=== PATIENT | female | born 1940 | race Caucasian/White ===

== ENCOUNTER 2021-09-17 22:05 | Observation (INO) | payer MEDICARE, SELFPAY ==
--- NOTE | ~2021-09-17 | XR_ITS ---
EXAMINATION: XR chest 2V Exam Date/Time: 09/17/2021 22:35 CDT HISTORY: midsternal chest pain radiates down lt arm pain today Comparison: 05/03/2010. RESULT: Lines, tubes, and devices: Cholecystectomy clips. Lungs and pleura: Clear. Cardiomediastinal silhouette: Stable cardiomediastinal silhouette. Other: No acute osseous or upper abdominal finding. IMPRESSION: No acute cardiopulmonary process. Reviewed, dictated and finalized at location K.
--- NOTE | ~2021-09-17 | CT_ITS ---
EXAMINATION: CTA chest PE protocol DATE: 09/18/2021 07:50 CDT INDICATION: Pleuritic chest pain TECHNIQUE: Computed tomographic angiography (CTA) of the chest was performed with 100 mL Omnipaque-35 0 intravenous contrast. The dose-length product was 169.53 mGy-cm. Maximum intensity projection 3D-re constructions of the aorta and other arteries were constructed by the technologist on a separate work station. Automated exposure control and iterative reconstruction technique were employed. COMPARISON: None. FINDINGS: Heart size normal. No significant pleural or pericardial effusion. Study is technically amanda quate without evidence for pulmonary embolism. No thoracic lymphadenopathy. No significant pleural or pericardial effusion. Heart size normal. There are cholecystectomy clips in the upper abdomen. There is apical pleural thickening/scarring. No endobronchial lesions. No pneumothorax. No focal airspace consolidation. No acute osseous abnormality. There is mild superior endplate compression deformity of a midthoracic vertebra which appears chronic. IMPRESSION: 1. No evidence for pulmonary embolism. No acute cardiopulmonary disease. Reviewed, dictated and finalized at location A.
--- NOTE | 2021-09-17 22:10 | ECG_ITS ---
Measurements Intervals [place] Rate: 75 P: 64 [place]: 176 QRS: 19 QRSD: 82 T: 69 QT: 350 QTc: 393 Interpretive Statements SINUS RHYTHM POOR R-WAVE PROGRESSION NO PREVIOUS ECG AVAILABLE FOR COMPARISON Electronically Signed On 09-18-2021 12:40:59 CDT by Rakel Hutchinson M.D.
[2021-09-17 22:28] VITALS: BP 100/60; PULSE 77; RESP 18; TEMP 36.3; O2SAT 99
[2021-09-17 22:39] LABS: Basophils Absolute Auto 0.1 K/mm3 (0.0-0.1); Basophils Percent Auto 0.7 % (0.2-1.2); Eosinophils Absolute Auto 0.1 K/mm3 (0-0.3); Eosinophils Percent Auto 1.1 % (0-4.4); Immature Granulocyte Absolute 0.02 K/mm3 (0.00-0.031); Immature Granulocyte Percent A 0.2 % (0-0.5); Lymphocytes Absolute Auto 1.91 K/mm3 (0.9-3.2); Lymphocytes Percent Auto 20.3 % (18.3-44.2); Mean Corpuscular HGB Conc 32.5 g/dl (32-36); Mean Corpuscular Hemoglobin 30.5 pg (26-34); Mean Corpuscular Volume 93.9 fl (80-100); Mean Platelet Volume 9.3 fl (7.4-10.4); Monocytes Absolute Auto 0.8 K/mm3 (0.1-0.6); Monocytes Percent Auto 8.1 % (2.6-8.5); Neutrophils Absolute Auto 6.6 K/mm3 (1.3-6.7); Neutrophils Percent Auto 69.6 % (45.5-73.1); Platelet Count Result 286 k/mm3 (150-375); Red Blood Count 4.26 M/mm3 (4.2-5.4); Red Cell Distribution Width 12.7 % (11.5-14.5); White Blood Count 9.4 K/mm3 (4.5-10.0)
[2021-09-17 22:50] LABS: Alanine Aminotransferase 8 U/L (6-35); Albumin Level 4.4 g/dL (3.5-5.1); Alkaline Phosphatase 79 U/L (38-126); Anion Gap 6 mmol/L (8-16); Aspartate Amino Transferase 21 U/L (14-36); Bilirubin,Total 0.6 mg/dL (0.2-1.3); Blood Urea Nitrogen 11 mg/dL (7-17); Calcium 9.2 mg/dL (8.4-10.2); Carbon Dioxide 28 mmol/L (22-30); Chloride 100 mmol/L (98-107); Estimated Glomerular Filt Rate > 60; Glucose 121 mg/dL (65-110); Lipase 206 U/L (23-300); Potassium 3.7 mmol/L (3.4-5.0); Sodium 134 mmol/L (137-145)
[2021-09-17 22:52] LABS: Partial Thromboplastin Time 25.8 SECONDS (22.3-36.8); Prothrombin Time 13.1 Seconds (11.1-14.7)
[2021-09-17 23:04] LABS: Troponin I 0.028 ng/mL (0.000-0.034)
[2021-09-17 23:56] VITALS: PULSE 73
[2021-09-18] VITALS (31 sets, daily range): BP systolic 105–140; BP diastolic 30–78; PULSE 63–87; RESP 12–20; TEMP 36.2–38.2; O2SAT 92–99
--- NOTE | 2021-09-18 | ED.GENADULT ---
HPI - General Adult General Chief complaint: Chest Pain Stated complaint: chest pain Time Seen by Provider: 09/17/21 23:39 History of Present Illness HPI narrative: 81-year-old female with history of diabetes and hypertension presenting to the emergency department for evaluation of back pain and chest pain. Patient states this morning she was having back pain and lower rib pain. Patient states she took ibuprofen, had a nap and when she woke up the pain had resolved. Patient states this evening that the pain did return. Patient denies any associated shortness of breath. Patient denies any prior history of AL. Patient states she does have history of tachycardia and spells of V. tach. Patient does take lisinopril for this. Patient denies any prior history of PE or DVT. Related Data Home Medications Medication Instructions Recorded Confirmed B Complex-Vitamin B12 1 tablet PO DAILY 09/18/21 09/18/21 lisinopril 10 mg tablet 1 tablet PO DAILY 09/18/21 09/18/21 metformin 500 mg tablet 1 tablet PO BID 09/18/21 09/18/21 Allergies Allergy/AdvReac Type Severity Reaction Status Date / Time Penicillins Allergy Severe HIVES AND Verified 04/23/17 07:35 DIFFICUTLY BREATHING Review of Systems Review of Systems: CONSTITUTIONAL: Denies fever, chills, or sweats. EYES: Denies visual changes, redness, or discharge. ENT: Denies rhinorrhea, congestion, sore throat, or otalgia. CARDIOVASCULAR: See HPI RESPIRATORY: Denies cough or dyspnea. GASTROINTESTINAL: Denies abdominal pain, nausea, vomiting, or diarrhea. GENITOURINARY: Denies dysuria or hematuria. SKIN: Denies rash or itching. MUSCULOSKELETAL: See HPI NEUROLOGIC: Denies headache, numbness, or weakness. [facility] [place] Family History Family History (Updated 09/18/21 @ 05:26 by Orquidea Winchester RN) Mother Cerebral aneurysm Father Alzheimer's dementia Heart disease Sibling Bladder cancer Social History Social History Smoking packs per day: 1 Smoking cigarettes per day: 20.0 Years smoked: 40 Smoking pack-years: 40.00 Smoking status: Current every day smoker Tobacco type: cigarettes Alcohol intake: current Drinks per week: 1 Substance use: never Spiritual care concerns: No Exam Narrative: APPEARANCE: Well appearing, no pain, no distress, well-nourished. HEAD: normocephalic, atraumatic. EYES: PERRLA/EOMI, conjunctivae clear. NOSE: Normal no drainage THROAT: Pharynx clear, no exudate. NECK: Supple. No adenopathy, no masses. RESPIRATORY: Airway patent, respirations nonlabored. Clear to auscultation bilaterally, no rales, rhonchi, wheezing. CARDIOVASCULAR: Regular rate and rhythm without murmurs rubs or gallops. ABDOMINAL: Soft, nontender, nondistended, normal bowel sounds MUSCULOSKELETAL: Moves all extremities. Strength/ROM intact, No edema, No calf tenderness. NEURO: Alert. Cranial nerves II through XII intact. Grossly intact SKIN: Warm, dry. Normal Color Course Course Emergency Course: Patient is afebrile with no leukocytosis. Patient's CMP is generally within normal limits. Patient's initial troponin was 0.028. Patient repeat troponin was 0.045. Patient was discussed with the hospitalist and due to the patient's age, no EKG changes and minimal bump in her troponin was decided to not start Lovenox and to wait the third troponin. Patient was admitted to the IMU. Patient was updated on the results of her work-up and plan for admission. CTA showed no evidence of a pulmonary embolism. Vital Signs Vital signs: Vital Signs Temperature 97.3 F L 09/17/21 22:28 Pulse Rate 77 09/17/21 22:28 Respiratory Rate 18 09/17/21 22:28 Blood Pressure 100/60 09/17/21 22:28 Pulse Oximetry 99 09/17/21 22:28 Oxygen Delivery Room Air 09/17/21 22:28 Temperature 97.9 F 09/18/21 05:14 Pulse Rate 87 09/18/21 05:14 Respiratory Rate 20 09/18/21 05:14 Blood Pressure 126/78 09/18/21 05:14 Pulse Oximetry 99 09/18/21 05:14 Oxyg
[2021-09-18] MEDS: ASPIRIN 81 MG CHEWABLE TABLET 324 MG PO (00:01)
[2021-09-18] MEDS: MORPHINE SULFATE (*CRX) 4 MG/ML INJ IV PUSH (00:52)
[2021-09-18 02:11] LABS: Troponin I 0.045 ng/mL (0.000-0.034)
[2021-09-18 03:45] LABS: Appearance Urine Clear (Clear); Bilirubin Urine Negative (Negative); Blood Urine Trace-lysed (Negative); Glucose Urine UA Negative (Negative); Ketones Urine Negative (Negative); Leukocyte Esterase Ur Negative LEU/UL (Negative); Nitrate Urine Negative (Negative); Protein Urine Negative (Negative); Specific Grav Ur <= 1.005 (1.001-1.035); Urobilinogen Urine 0.2 mg/dL (<2.0); pH Urine 5.5 (5.0-9.0)
[2021-09-18 03:47] LABS: Bacteria Urine Trace /hpf; RBC Urine 0-2 /hpf (0-2)
[2021-09-18 03:48] LABS: Add Urine Microscopic? YES; Color Urine Light Yellow (Yellow)
[2021-09-18 04:21] LABS: SARS-CoV-2 RNA PCR Negative
[2021-09-18 05:01] LABS: Troponin I 0.259 ng/mL (0.000-0.034)
--- NOTE | 2021-09-18 05:15 | ADMGEN ---
This patient, Luana Martinez, was admitted to IMU Room 205-01. Patient/family oriented to hospital policies and general routines including ID bracelet, bed and alarms, visiting hours, pain management, procedures, bathroom and other care routines, personal items, smoking policy, room service/diet, and visiting hours. Information on how to activate the Rapid Response Team has been discussed. Patient/Family are encouraged to report perceived risks to care and to ask questions if they do not understand what they are told or what they should do.
--- NOTE | 2021-09-18 07:43 | ECG_ITS ---
Measurements Intervals [place] Rate: 67 P: 67 [place]: 182 QRS: 12 QRSD: 89 T: 91 QT: 372 QTc: 394 Interpretive Statements SINUS RHYTHM NONSPECIFIC ST & T-WAVE ABNORMALITY COMPARED TO ECG 09/17/2021 22:14:55 NO SIGNIFICANT CHANGE Electronically Signed On 09-18-2021 12:44:55 CDT by Rakel Hutchinson M.D.
--- NOTE | 2021-09-18 08:26 | PM.CNCAR ---
Assessment and Plan Assessment and plan (1) Elevated troponin: Code(s): R77.8 - Other specified abnormalities of plasma proteins Status: Acute (2) Chest pain: Code(s): R07.9 - Chest pain, unspecified Status: Acute Plan This is an 81-year-old woman with multiple risk factors including hypertension on at some and diabetes dyslipidemia and cigarette smoking who presents to the hospital with waxing and waning ischemic type chest pain that occurred at rest yesterday. Her electrocardiogram looks benign her troponin levels have shown a modest rise in this setting I would recommend an angiogram. She understands this well and is agreeable. We will get this done later this morning and further recommendations of course will be forthcoming with those findings. Ronny Smith MD [facility] History of Present Illness History of Present Illness Consult date/time: 09/18/21 08:26 Consult reason: chest pain Reason For Visit: elevated trop Narrative: This is a pleasant 81-year-old woman who presented to the hospital yesterday evening with a couple of episodes of chest pain that occurred earlier in the day. She was seen in the emergency room evaluated and admitted admitted for further observation and management. She is not known to have coronary artery disease prior to this she did state that she has a history of some atrial and ventricular ectopic activity for which she has seen physicians in the past which was attributed to hypertension. She has longstanding hypertension for which she takes lisinopril. She has never had palpitations that have resulted in syncope. She is normally active elderly lady who carries on daily activities and has not noticed any pattern of exertional chest discomfort. Yesterday morning she had an episode of some pressure-like discomfort in the central to upper substernal region that radiated into her neck and jaw. The discomfort lasted altogether for 10 or 20 minutes and then subsided. She took some ibuprofen when this happened and the felt well the rest of the day yesterday evening she had the recurrence of similar symptoms. Both of these episodes did not occur with exertion she was basically at rest at home. She then came into the emergency room her electrocardiogram looks benign. She has had a small rise in her troponin from normal to 0.2. In this setting I am seeing her in consultation. She states that longstanding hypertension has been well controlled with lisinopril. She does have dyslipidemia which is treated with diet. She has been tried on several statin drugs with severe muscle pain and is felt to be intolerant of statins. She has non insulin-dependent diabetes which is very well controlled with diet. She is a longstanding cigarette smoker. Review of Systems Constitutional: Constitutional: Reports no additional constitutional complaints Eyes: Eyes: Reports no additional eye complaints ENT: Reports system reviewed and no additional complaints, except as documented Cardiovascular: Cardiovascular: Reports as per HPI Respiratory: Respiratory: Reports no additional respiratory complaints Gastrointestinal: Gastrointestinal: Reports no additional gastrointestinal complaints Musculoskeletal: Musculoskeletal: Reports no additional musculoskeletal complaints Integumentary/Breasts: Skin/Breast: Reports system reviewed and no additional complaints, except as docu Neurologic: Reports system reviewed and no additional complaints, except as documented Endocrine: Endocrine: Reports no additional endocrine complaints Hematologic/Lymphatic: Hematologic/Lymphatic: Reports no additional hematologic/lymphatic complaints Allergic/Immunologic: Allergic/Immunologic: Reports no additional allergic/immunologic complaints [facility] Family History Family History (Updated 09/18/21 @ 05:26 by Orquidea Winchester RN) Mother Cerebral aneurysm Father Alzheimer's dementia Heart disease Sibling Bladder
--- NOTE | 2021-09-18 09:20 | PM.IMHP ---
H&P: HPI History of Present Illness Date/Time: 09/18/21 09:20 Chief Complaint: Chest pain Narrative: This is 81 old female with past medical history of well-controlled diabetes, hypertension, hyperlipidemia intolerant to statin presented with chest pain that started yesterday morning radiate to the back and the neck area. Was severe in characteristic happen at rest. Took some ibuprofen and helped. Later yesterday evening she had the pain again but this time of of in the not. She denies any nausea vomiting or shortness of breath associated with this. No history of coronary artery disease in the past. She had history of PVCs and PACs in the past. She had seen Dr. groves in the past. Chest x-ray was negative. CTA was done which showed no evidence of PE and no acute cardiopulmonary disease. Her initial troponin was negative however had uptrend on her troponin. She was admitted for further evaluation and management. Review of Systems Review of Systems: - CONSTITUTIONAL: Denies weight loss, fever and chills. - HEENT: Denies changes in vision and hearing - RESPIRATORY: Denies SOB and cough. - CV: Denies palpitations and reports CP. - GI: Denies abdominal pain, nausea, vomiting and diarrhea. - : Denies dysuria and urinary frequency. - MSK: Denies myalgia and joint pain. - SKIN: Denies rash and pruritus. - NEUROLOGICAL: Denies headache and syncope. - PSYCHIATRIC: Denies recent changes in mood. Denies anxiety and depression. All systems reviewed & are unremarkable except as noted in HPI and below Constitutional: Constitutional: Reports fatigue and Reports weakness Neurologic: Reports weakness Endocrine: Endocrine: Reports fatigue [facility] Family History Family History (Updated 09/18/21 @ 05:26 by Orquidea Winchester RN) Mother Cerebral aneurysm Father Alzheimer's dementia Heart disease Sibling Bladder cancer Social History Social History Smoking packs per day: 1 Smoking cigarettes per day: 20.0 Years smoked: 40 Smoking pack-years: 40.00 Smoking status: Current every day smoker Tobacco type: cigarettes Alcohol intake: current Drinks per week: 1 Substance use: never Spiritual care concerns: No Meds Home Medications and Allergies Home Medications Medication Instructions Recorded Confirmed Type B Complex-Vitamin B12 1 tablet PO DAILY 09/18/21 09/18/21 History lisinopril 10 mg tablet 1 tablet PO DAILY 09/18/21 09/18/21 History metformin 500 mg tablet 1 tablet PO BID 09/18/21 09/18/21 History Allergies Allergy/AdvReac Type Severity Reaction Status Date / Time Penicillins Allergy Severe HIVES AND Verified 04/23/17 07:35 DIFFICUTLY BREATHING Vital Signs Vital Signs - 24 hr 09/17/21 22:28 09/17/21 23:55 09/17/21 23:56 Temperature 97.3 F L Pulse Rate 77 73 Respiratory Rate 18 Blood Pressure 100/60 Pulse Oximetry 99 Oxygen Delivery Room Air Room Air 09/18/21 05:14 09/18/21 05:00 09/18/21 06:04 Temperature 97.9 F 98.0 F Pulse Rate 87 80 Respiratory Rate 20 20 Blood Pressure 126/78 117/41 L Pulse Oximetry 99 97 Oxygen Delivery Room Air 09/18/21 06:00 09/18/21 07:54 Temperature 98.5 F Pulse Rate 74 76 Respiratory Rate 16 Blood Pressure 123/53 L Pulse Oximetry 98 Oxygen Delivery Exam Narrative: APPEARANCE: Well appearing, no pain, no distress, well-nourished. HEAD: normocephalic, atraumatic. EYES: PERRLA/EOMI, conjunctivae clear. NOSE: Normal no drainage NECK: Supple. No adenopathy, no masses. RESPIRATORY: Airway patent, respirations nonlabored. Clear to auscultation bilaterally, no rales, rhonchi, wheezing. CARDIOVASCULAR: Regular rate and rhythm without murmurs rubs or gallops. ABDOMINAL: Soft, nontender, nondistended, normal bowel sounds MUSCULOSKELETAL: Moves all extremities. Strength/ROM intact, No edema, No calf tenderness. NEURO: Alert. Cranial nerves II through XII intact.? Grossly intact SKIN:
[2021-09-18 10:02] LABS: Cholesterol 220 mg/dL (0-200); HDL Direct 64 mg/dL; Triglycerides 101 mg/dL (<150)
[2021-09-18 10:13] LABS: LDL Cholesterol Direct 119 mg/dL
[2021-09-18] MEDS: SODIUM CHLORIDE 0.9% IV 500 ML 100 ML IV CONT (10:28)
[2021-09-18] MEDS: HYDROmorphone HCL INJ (*CRX) 1 MG/ML SYR 0.5 MG IV PUSH (10:35)
[2021-09-18 10:46] LABS: Hemoglobin A1C 5.7 % (<5.7)
--- NOTE | 2021-09-18 11:26 | WPDMODSED ---
Moderate Sedation Note-Pt Data Patient Data Diagnosis: acute coronary syndrome Present Complaint: chest pain radiating to the neck Procedure to be performed/Plan: left heart catheterization Allergies Allergy/AdvReac Type Severity Reaction Status Date / Time Penicillins Allergy Severe HIVES AND Verified 04/23/17 07:35 DIFFICUTLY BREATHING Home Medications Medication Instructions Recorded Confirmed Type B Complex-Vitamin B12 1 tablet PO DAILY 09/18/21 09/18/21 History lisinopril 10 mg tablet 1 tablet PO DAILY 09/18/21 09/18/21 History metformin 500 mg tablet 1 tablet PO BID 09/18/21 09/18/21 History Current Medications: Active Medications Aspirin (Aspirin 81 Mg Enteric Tablet) 81 mg PO QAM SONYA Dextrose (Dextrose 50% 25 Gm/50 Ml Syringe) 12.5 gm IV PUSH PRN PRN; Protocol PRN Reason: Hypoglycemia Glucagon (Glucagon For Inj 1 Mg Vial) 1 mg IM PRN PRN; Protocol PRN Reason: Hypoglycemia Glucose (Glucose Oral Gel 15 Gm Of Glucse In 37.5 Gm Tube) 15 gm PO PRN PRN; Protocol PRN Reason: Hypoglycemia Hydromorphone HCl (Hydromorphone Hcl Inj (*Crx) 1 Mg/Ml Syr) 0.5 mg IV PUSH Q4H PRN PRN Reason: Pain Rated 7-10 Last Admin: 09/18/21 10:35 Dose: 0.5 mg Sodium Chloride (Normal Saline Iv) 500 mls @ 100 mls/hr IV CONT .Q5H SONYA Last Admin: 09/18/21 10:28 Dose: 100 mls/hr Dextrose (Dextrose 5% 1,000 Ml) 1,000 mls @ 100 mls/hr IVPB PRN PRN; Protocol PRN Reason: Hypoglycemia Insulin Aspart (Insulin Aspart (*Bkc) 100 Units/Ml) 2 - 5 units SUB-Q TIDWM SONYA; Protocol Lisinopril (Lisinopril 10 Mg Tablet) 10 mg PO DAILY SONYA Metoprolol Tartrate (Metoprolol Tartrate 12.5 Mg Tablet) 12.5 mg PO Q12HR SONYA Vitamin B Complex (Vitamin B Complex Capsule) 1 cap PO DAILY SONYA Stop: 10/19/21 08:59 Sedation/Anesthesia: No previous sedation/anesthesia problems (including family history). [facility] Family History Family History (Updated 09/18/21 @ 05:26 by Orquidea Winchester RN) Mother Cerebral aneurysm Father Alzheimer's dementia Heart disease Sibling Bladder cancer Social History Social History Smoking packs per day: 1 Smoking cigarettes per day: 20.0 Years smoked: 40 Smoking pack-years: 40.00 Smoking status: Current every day smoker Tobacco type: cigarettes Alcohol intake: current Drinks per week: 1 Substance use: never Spiritual care concerns: No Mod Sed Physical Exam Physical Exam Pre Procedural Exam: Normal: Appearance, Neck, Throat, Airway, Heart Size, Heart Rate, Heart Rhythm, Neuro Exam and Extremities and Variation: Lungs ( tubular breath sounds bilateral) Hours since solid foods: 12 Hours since liquid intake: 12 Mallampati Classification: class II Internal Medicine - PN: Obj Da Vital Signs Vital Signs: Vital Signs - 24 hr 09/17/21 22:28 09/17/21 23:55 09/17/21 23:56 Temperature 36.3 C L Pulse Rate 77 73 Respiratory Rate 18 Blood Pressure 100/60 Pulse Oximetry 99 Oxygen Delivery Room Air Room Air 09/18/21 05:14 09/18/21 05:00 09/18/21 06:04 Temperature 36.6 C 36.7 C Pulse Rate 87 80 Respiratory Rate 20 20 Blood Pressure 126/78 117/41 L Pulse Oximetry 99 97 Oxygen Delivery Room Air 09/18/21 06:00 09/18/21 07:54 09/18/21 08:00 Temperature 36.9 C Pulse Rate 74 76 Respiratory Rate 16 Blood Pressure 123/53 L Pulse Oximetry 98 Oxygen Delivery Room Air Intake/Output Intake/Output: Intake & Output 09/15/21 09/16/21 09/17/21 09/18/21 23:59 23:59 23:59 23:59 Output Total 200 Balance -200 Meds/Results Medications: Active Medications Generic Name Dose Route Start Last Admin Trade Name Freq PRN Reason Stop Dose Admin Aspirin 81 mg 09/19/21 09:00 Aspirin 81 Mg Enteric Tablet PO QAM [facility] Dextrose 12.5 gm 09/18/21 09:45 Dextrose 50% 25 Gm/50 Ml Syringe IV PUSH PRN PRN Hypoglycemia Protocol Glucagon 1 mg 09/18/21 09:45 Glucagon For Inj 1 Mg Vial IM PRN
[2021-09-18] MEDS: lisinopriL 10 MG TABLET PO (11:32)
--- NOTE | 2021-09-18 12:18 | WPDCARDPROC ---
Cardiac Cath Procedure Note Date of procedure:: 09/18/21 Performing physician:: Ronny Smith MD Indication:: Chest pain/ acute coronary syndrome Brief clinical history:: this is 81-year-old woman with multiple risk factors who entered the hospital with an episode of chest and neck pain associated with a very small rise in her troponin level. Electrocardiograms are unremarkable. In this setting an angiogram has been recommended Procedure Procedure performed:: coronary angiography left ventriculography Sedation/Medication given:: Versed 1 mg case start time 12:01 p.m. case end time 12:13 p.m. Access site:: right femoral artery Estimated blood loss:: 20 cc Procedure note:: patient was brought to the cardiac catheterization lab in the postabsorptive state where the right femoral triangle was prepared in the normal fashion. Anesthesia was provided with 1% lidocaine infiltrated locally. Using the modified Seldinger technique the femoral artery was punctured and a 5 [place] vascular sheath was placed. After this left heart catheterization was carried out. I used a 5 [place] angled pigtail catheter to measure left-sided inject the left Ventricle in the KHAN projections. Following this the pigtail catheter was removed. I used a standard FL4 catheter to engage and inject the left coronary artery and then a standard JR4 catheter to engage and inject the right coronary artery. Cineangiograms were then reviewed and the case was terminated. The patient was taken to the holding area where manual sheath removal will be performed. She tolerated procedure well there were no apparent complications left the catheterization lab with no evidence of groin hematoma. Findings:: hemodynamics: Central pressure is 136 over 56 left ventricle 136/0 end-diastolic 16 there is no systolic gradient on pullback across the aortic valve. Left ventricle: The left ventricle is normal in size all segments contract vigorously the global ejection fraction is 75% by visual estimation no wall motion abnormalities were identified the left main coronary artery is nicely patent the left anterior descending has some mild adventitial calcification proximally however the vessel is widely patent down to the apex. There is a medium-sized proximal diagonal branch that has about 30% stenosis. The circumflex is a moderate caliber rise to 1 significant OM branch. The circumflex is angiographically free of disease. There is a small ramus intermedius branch that appears to have a proximal 80-90% stenosis this is a very small less than 1 mm size vessel. The right coronary artery is a moderate to large caliber vessel dominant to the posterior circulation the right coronary artery is smooth and angiographically normal in appearance. Conclusion:: 1. Right coronary artery dominant circulation with no significant coronary disease identified. Only significant lesion is a high-grade stenosis in the origin of a very tiny ramus intermedius branch described above. 2. Vigorous left ventricular systolic function 3. medical therapy will be recommended for this modest coronary disease Ronny Smith MD [facility]
[2021-09-18] MEDS: SODIUM CHLORIDE 0.9% IV 1,000 ML 125 ML IV CONT (13:28)
[2021-09-19] VITALS (9 sets, daily range): BP systolic 110–121; BP diastolic 45–61; PULSE 65–76; RESP 18–20; TEMP 36.6–37.6; O2SAT 97–98
[2021-09-19 07:52] LABS: Glucose Point of Care 123 mg/dl (65-105)
[2021-09-19] MEDS: ASPIRIN 81 MG ENTERIC TABLET PO (08:48)
[2021-09-19] MEDS: VITAMIN B COMPLEX CAPSULE 1 CAP PO (08:48)
[2021-09-19] MEDS: lisinopriL 10 MG TABLET PO (08:48)
--- NOTE | 2021-09-19 10:06 | PM.IMPN ---
Progress Note: A&P Assessment and Plan (1) Chest pain: Code(s): R07.9 - Chest pain, unspecified Status: Acute (2) Elevated troponin: Code(s): R77.8 - Other specified abnormalities of plasma proteins Status: Acute (3) Non-ST elevation OK (NSTEMI): Code(s): I21.4 - Non-ST elevation (NSTEMI) myocardial infarction Status: Acute (4) Diabetes type 2, controlled: Code(s): E11.9 - Type 2 diabetes mellitus without complications Status: Acute (5) Hypertension: Code(s): I10 - Essential (primary) hypertension Status: Acute (6) Hyperlipidemia: Code(s): E78.5 - Hyperlipidemia, unspecified Status: Acute Plan # Chest pain radiating to back typical characteristic of angina. Chest x-ray negative. CTA negative for PE or acute cardiopulmonary disease. Likely etiology is on ST-elevation. # Non ST-elevation OK: Elevated troponin no prior history of coronary artery disease. Multiple other risk factors. Plan for cardiac catheterization by Cardiology. Initial troponin-0.028 with subsequent increase over time to 0.[address]-elevation OK. continue aspirin 81 mg daily. Intolerant to statin but will check lipid profile. Add beta-joselin Cardiac catheterization 09/18/2021 1.? ? Right coronary artery dominant circulation with no significant coronary disease identified.? Only significant lesion is a high-grade stenosis in the origin of a very tiny ramus intermedius branch described above. 2.? ? Vigorous left ventricular systolic function 3. ? medical therapy will be recommended for this modest coronary disease LDL is 119, A1c is 5.7 Intolerant to statin check lipid. Hypertension Hyperlipidemia Diabetes check A1c. Hold metformin SSI Current Nicotine dependence DVT prophylaxis Code status full code Subjective Date/time seen: 09/19/21 10:06 Review of Systems Review of Systems: All systems reviewed & are unremarkable except as noted in HPI and below Exam Narrative: APPEARANCE: Well appearing, no pain, no distress, well-nourished. HEAD: normocephalic, atraumatic. EYES: PERRLA/EOMI, conjunctivae clear. NOSE: Normal no drainage NECK: Supple. No adenopathy, no masses. RESPIRATORY: Airway patent, respirations nonlabored. Clear to auscultation bilaterally, no rales, rhonchi, wheezing. CARDIOVASCULAR: Regular rate and rhythm without murmurs rubs or gallops. ABDOMINAL: Soft, nontender, nondistended, normal bowel sounds MUSCULOSKELETAL: Moves all extremities. Strength/ROM intact, No edema, No calf tenderness. NEURO: Alert. Cranial nerves II through XII intact.? Grossly intact SKIN: Warm, dry. Normal Color Objective Data Vital Signs Vital Signs: Vital Signs - 24 hr 09/18/21 12:45 09/18/21 12:50 09/18/21 12:33 Temperature 98.9 F Pulse Rate 70 72 76 Respiratory Rate 16 14 20 Blood Pressure 124/54 L 140/68 134/55 L Pulse Oximetry 92 92 94 Oxygen Delivery Room Air Room Air Room Air 09/18/21 12:55 09/18/21 13:00 09/18/21 13:05 Temperature Pulse Rate 71 63 69 Respiratory Rate 17 13 13 Blood Pressure 126/59 L 129/52 L 130/56 L Pulse Oximetry 93 92 92 Oxygen Delivery Room Air Room Air Room Air 09/18/21 13:10 09/18/21 13:15 09/18/21 13:20 Temperature Pulse Rate 72 70 63 Respiratory Rate 12 14 17 Blood Pressure 126/57 L 112/52 L 124/51 L Pulse Oximetry 92 92 92 Oxygen Delivery Room Air Room Air Room Air 09/18/21 13:45 09/18/21 14:00 09/18/21 14:15 Temperature Pulse Rate 67 65 64 Respiratory Rate 20 12 12 Blood Pressure 124/59 L 113/46 L 105/55 L Pulse Oximetry 96 94 94 Oxygen Delivery Room Air Room Air Room Air 09/18/21 13:30 09/18/21 15:00 09/18/21 14:30 Temperature 97.9 F 100.7 F H Pulse Rate 66 84 71 Respiratory Rate 12 16 16 Blood Pressure 118/53 L 111/48 L 109/52 L Pulse Oximetry 92 95 98 Oxygen Delivery Room Air 09/18/21 12:00 09/18/21 15:30 09/18/21 16:30 Temperature 97.8 F Pulse Rate 82 81 Respir
--- NOTE | 2021-09-19 10:11 | PM.PNCARD ---
Progress Note: A&P Assessment and Plan (1) Elevated troponin: Code(s): R77.8 - Other specified abnormalities of plasma proteins Status: Acute (2) Chest pain: Code(s): R07.9 - Chest pain, unspecified Status: Acute Assessment and Plan: Ischemic chest pain. She was taken to the cardiac medical laboratory technicians and was found to have high-grade stenosis in the origin of a very tiny ramus intermedius branch. Medical therapy recommended. Start ASA. She has been intolerant to statins in the past with severe myalgias. Can consider PCSK9 inhibitor as an outpatient. Recommend smoking cessation, she is planning to quit Heart healthy/low cholesterol diet daily light aerobic exercise Subjective Date/time seen: 09/19/21 10:11 Cardiology follow up for CAD Doing well today. No recurrence of chest pain. No shortness of breath. Has some questions regaring her medications. Review of Systems Constitutional: Constitutional: Reports no additional constitutional complaints Eyes: Eyes: Reports no additional eye complaints ENT: Reports system reviewed and no additional complaints, except as documented Cardiovascular: Cardiovascular: Reports as per HPI Respiratory: Respiratory: Reports no additional respiratory complaints Gastrointestinal: Gastrointestinal: Reports no additional gastrointestinal complaints Musculoskeletal: Musculoskeletal: Reports no additional musculoskeletal complaints Integumentary/Breasts: Skin/Breast: Reports system reviewed and no additional complaints, except as docu Neurologic: Reports system reviewed and no additional complaints, except as documented Endocrine: Endocrine: Reports no additional endocrine complaints Hematologic/Lymphatic: Hematologic/Lymphatic: Reports no additional hematologic/lymphatic complaints Allergic/Immunologic: Allergic/Immunologic: Reports no additional allergic/immunologic complaints Exam Const: General: comfortable and no acute distress Other: Pleasant elderly lady lying comfortably in bed no distress. HENMT: Mouth: Yes moist mucous membranes Eyes: Sclera: sclerae normal Pupils: Equal, round and reactive pupils present Neck: Neck: supple and no JVD Resp: Effort & Inspection: normal respiratory effort Auscultation: clear to auscultation bilaterally Cardio: Rate: regular rate Rhythm: regular rhythm Heart sounds: no murmurs GI: Auscultation: normal bowel sounds Skin: General skin exam: normal color Other: R groin arterial access site free from bleeding, hematoma, bruit. Some mild ecchymosis. Neuro: Cranial nerves: Yes Equal, round and reactive pupils present Other: Normal cognition Extrem: General: normal to inspection Objective Data Vital Signs Vital Signs: Vital Signs - 24 hr 09/18/21 12:45 09/18/21 12:50 09/18/21 12:33 Temperature 37.2 C Pulse Rate 70 72 76 Respiratory Rate 16 14 20 Blood Pressure 124/54 L 140/68 134/55 L Pulse Oximetry 92 92 94 Oxygen Delivery Room Air Room Air Room Air 09/18/21 12:55 09/18/21 13:00 09/18/21 13:05 Temperature Pulse Rate 71 63 69 Respiratory Rate 17 13 13 Blood Pressure 126/59 L 129/52 L 130/56 L Pulse Oximetry 93 92 92 Oxygen Delivery Room Air Room Air Room Air 09/18/21 13:10 09/18/21 13:15 09/18/21 13:20 Temperature Pulse Rate 72 70 63 Respiratory Rate 12 14 17 Blood Pressure 126/57 L 112/52 L 124/51 L Pulse Oximetry 92 92 92 Oxygen Delivery Room Air Room Air Room Air 09/18/21 13:45 09/18/21 14:00 09/18/21 14:15 Temperature Pulse Rate 67 65 64 Respiratory Rate 20 12 12 Blood Pressure 124/59 L 113/46 L 105/55 L Pulse Oximetry 96 94 94 Oxygen Delivery Room Air Room Air Room Air 09/18/21 13:30 09/18/21 15:00 09/18/21 14:30 Temperature 36.6 C 38.2 C H Pulse Rate 66 84 71 Respiratory Rate 12 16 16 Blood Pressure 118/53 L 111/48 L 109/52 L Pulse Oximetry 92 95 98 Oxygen Delivery Room Air 09/18/21 12:00 09/18/21 15:30 09/18/21 16:30 [place]
[2021-09-19 12:01] LABS: Glucose Point of Care 126 mg/dl (65-105)
--- NOTE | 2021-09-19 13:16 | PM.DS ---
DS: Admitting Diagnosis Discharge Date 09/19/2021 Admitting Diagnosis chest pain DS: Discharge Diagnosis Discharge Diagnosis (1) Chest pain: Code(s): R07.9 - Chest pain, unspecified Status: Acute (2) Elevated troponin: Code(s): R77.8 - Other specified abnormalities of plasma proteins Status: Acute (3) Non-ST elevation VT (NSTEMI): Code(s): I21.4 - Non-ST elevation (NSTEMI) myocardial infarction Status: Acute (4) Diabetes type 2, controlled: Code(s): E11.9 - Type 2 diabetes mellitus without complications Status: Acute (5) Hypertension: Code(s): I10 - Essential (primary) hypertension Status: Acute (6) Hyperlipidemia: Code(s): E78.5 - Hyperlipidemia, unspecified Status: Acute DS: Summary Hospital Course Reason for hospitalization: HPI: This is 81 old female with past medical history of well-controlled diabetes, hypertension, hyperlipidemia intolerant to statin presented with chest pain that started yesterday morning radiate to the back and the neck area.? Was severe in characteristic happen at rest.? Took some ibuprofen and helped.? Later yesterday evening she had the pain again but this time of of in the not.? She denies any nausea vomiting or shortness of breath associated with this.? No history of coronary artery disease in the past.? She had history of PVCs and PACs in the past.? She had seen Dr. kelley in the past.? Chest x-ray was negative.? CTA was done which showed no evidence of PE and no acute cardiopulmonary disease.? Her initial troponin was negative however had uptrend on her troponin.? She was admitted for further evaluation and management. Hospital Course: Chest pain radiating to back typical characteristic of angina.? Chest x-ray negative.? CTA negative for PE or acute cardiopulmonary disease.? Likely etiology is on ST-elevation. Non ST-elevation VT:? Elevated troponin no prior history of coronary artery disease.? Multiple other risk factors.? Plan for cardiac catheterization by Cardiology.? Initial troponin-0.028 with subsequent increase over time to 0.[address]-elevation VT. continue aspirin 81 mg daily.? Intolerant to statin but will check lipid profile.? Add beta-joselin Status post cardiac catheterization on 09/18/2021: 1.? ? Right coronary artery dominant circulation with no significant coronary disease identified.? Only significant lesion is a high-grade stenosis in the origin of a very tiny ramus intermedius branch described above. 2.? ? Vigorous left ventricular systolic function 3. ? medical therapy will be recommended for this modest coronary disease Intolerant to statin Lipid profile with LDL of 119. She reports intolerance to multiple different statins in the past. With her newly diagnosed coronary artery disease, she will need to be evaluated for PCSK9 inhibitor therapy which will be done as an outpatient basis. Follow-up with Cardiology on outpatient basis. Add beta-joselin and aspirin at discharge Also advise smoking cessation during the visit Hypertension Hyperlipidemia Diabetes A1c control at 5.7.? Hold metformin SSI. Resume metformin Current Nicotine dependence DVT prophylaxis Code status full code Time Spent with Patient Time attestation: Total time spent providing and/or coordinating discharge services: DS: Data Data Completed and Pending Labs on day of discharge: Labs from last 24 hours 09/19/21 09/19/21 11:48 07:37 POC Capillary Glucose 126 H 123 H Procedures/Treatments: 1.? ? Right coronary artery dominant circulation with no significant coronary disease identified.? Only significant lesion is a high-grade stenosis in the origin of a very tiny ramus intermedius branch described above. 2.? ? Vigorous left ventricular systolic function 3. ? medical therapy will be recommended for this modest coronary disease Imaging Radiologist's impression: ITS Impressions Chest X-Ray 0
== END 2021-09-19 14:19 | disposition home or self-care (01) ==
LOC: ANHED 09-18 03:12 → ANHIMU 09-18 04:27
PROVIDERS: Specialist; Admitting Provider Internal Medicine; Emergency Provider Emergency Medicine; PCP Family Medicine Adolescent Medicine; Visit Provider Internal Medicine
PROC: 4A023N7 Measurement of Cardiac Sampling and Pressure, Left Heart, Percutaneous Approach (ICD-10-PCS; CPT 93452; principal; 2021-09-18 10:30)
DX: I21.4 Non-ST elevation (NSTEMI) myocardial infarction (principal); I25.10 Atherosclerotic heart disease of native coronary artery without angina pectoris; I10 Essential (primary) hypertension; E78.5 Hyperlipidemia, unspecified; E11.9 Type 2 diabetes mellitus without complications; F17.210 Nicotine dependence, cigarettes, uncomplicated; Z79.84 Long term (current) use of oral hypoglycemic drugs; Z79.82 Long term (current) use of aspirin; Z20.822 Contact with and (suspected) exposure to COVID-19
CPT/HCPCS: 36415; 71046; 71275; 80053; 80061; 81001; 82948; 83036; 83690; 84484; 85025; 85610; 85730; 87086; 93005; 93458; 96374; 99285; A9270; C1887; C1894; C9803; G0378; J1170; J1644; J2250; J2270; J3010; J7030; J7040; Q9967; U0003; U0005

== ENCOUNTER 2022-10-08 06:45 | Outpatient (CLI) | payer MEDICARE, SELFPAY ==
[2022-10-08 07:30] LABS: Alanine Aminotransferase 11 U/L (6-35); Albumin Level 4.4 g/dL (3.5-5.1); Alkaline Phosphatase 68 U/L (38-126); Anion Gap 6 mmol/L (8-16); Aspartate Amino Transferase 22 U/L (14-36); Bilirubin,Total 2.3 mg/dL (0.2-1.3); Blood Urea Nitrogen 6 mg/dL (7-17); Calcium 9.4 mg/dL (8.4-10.2); Carbon Dioxide 28 mmol/L (22-30); Chloride 102 mmol/L (98-107); Cholesterol 196 mg/dL (0-200); Estimated Glomerular Filt Rate > 60; Glucose 127 mg/dL (65-110); HDL Direct 65 mg/dL; Potassium 3.5 mmol/L (3.4-5.0); Sodium 136 mmol/L (137-145); Triglycerides 86 mg/dL (<150)
[2022-10-08 07:41] LABS: Hemoglobin A1C 5.3 % (<5.7)
[2022-10-08 07:43] LABS: LDL Cholesterol Direct 94 mg/dL
== END 2022-10-08 06:46 | disposition home or self-care (01) ==
PROVIDERS: PCP Family Medicine Adolescent Medicine; Visit Provider Family Medicine Adolescent Medicine
DX: E11.42 Type 2 diabetes mellitus with diabetic polyneuropathy (principal); E78.00 Pure hypercholesterolemia, unspecified; I10 Essential (primary) hypertension; I70.0 Atherosclerosis of aorta
CPT/HCPCS: 36415; 80053; 80061; 83036

== ENCOUNTER → 2022-10-22 08:03 | Outpatient (CLI) | payer MEDICARE, SELFPAY ==
--- NOTE | ~2022-10-22 | US_ITS ---
Abdominal Sonogram: Real-time sonographic imaging of the abdomen was performed. Clinical History: Elevated bilirubin Findings: The liver appears normal with no evidence of mass lesion or bile duct dilatation. Main por parul vein demonstrates normal direction of flow. The spleen is normal in size without evidence of foca l lesion. The gallbladder is absent, compatible prior cholecystectomy. The common bile duct measures 11 mm. The visualized pancreas, aorta, and IVC are unremarkable. The right kidney measures 9.8 cm in length and the left kidney measures 10.8 cm. There is no hydronephrosis or renal calculus. Impression: Dilated common bile duct, which may be related to prior cholecystectomy. Correlate clinically. Reviewed, dictated and finalized at location . Impression: Dilated common bile duct, which may be related to prior cholecystectomy. Correl ate clinically.
== END ==
PROVIDERS: PCP Family Medicine Adolescent Medicine; Visit Provider Family Medicine Adolescent Medicine
DX: R17 Unspecified jaundice (principal); Z90.49 Acquired absence of other specified parts of digestive tract
CPT/HCPCS: 76700

== ENCOUNTER 2023-10-19 06:44 | Outpatient (CLI) | payer MEDICARE, SELFPAY ==
[2023-10-19 07:55] LABS: Hemoglobin A1C 5.8 % (<5.7)
[2023-10-19 07:56] LABS: Alanine Aminotransferase 6 U/L (6-35); Albumin Level 4.4 g/dL (3.5-5.1); Alkaline Phosphatase 68 U/L (38-126); Anion Gap 8 mmol/L (4-12); Aspartate Amino Transferase 21 U/L (14-36); Bilirubin,Total 1.1 mg/dL (0.2-1.3); Blood Urea Nitrogen 9 mg/dL (7-17); Calcium 9.4 mg/dL (8.4-10.2); Carbon Dioxide 29 mmol/L (22-30); Chloride 100 mmol/L (98-107); Cholesterol 197 mg/dL (0-200); Estimated Glomerular Filt Rate > 60; Glucose 105 mg/dL (65-110); HDL Direct 58 mg/dL; Potassium 3.6 mmol/L (3.4-5.0); Sodium 137 mmol/L (137-145); Triglycerides 113 mg/dL (<150)
[2023-10-19 08:05] LABS: Hematocrit 41.4 % (37.0-47.0); Hemoglobin 13.4 g/dL (12.0-15.0); Mean Corpuscular HGB Conc 32.4 g/dl (32-36); Mean Corpuscular Hemoglobin 31.1 pg (26-34); Mean Corpuscular Volume 96.1 fl (80-100); Mean Platelet Volume 9.8 fl (7.4-10.4); Platelet Count Result 290 k/mm3 (150-375); Red Blood Count 4.31 M/mm3 (4.2-5.4); Red Cell Distribution Width 12.7 % (11.5-14.5); White Blood Count 6.5 K/mm3 (4.5-10.0)
[2023-10-19 08:07] LABS: LDL Cholesterol Direct 115 mg/dL
== END 2023-10-19 06:45 | disposition home or self-care (01) ==
LOC: ANHLAB 06:49
PROVIDERS: PCP Family Medicine Adolescent Medicine; Visit Provider Family Medicine Adolescent Medicine
DX: I25.10 Atherosclerotic heart disease of native coronary artery without angina pectoris (principal); E11.42 Type 2 diabetes mellitus with diabetic polyneuropathy; E78.00 Pure hypercholesterolemia, unspecified; I10 Essential (primary) hypertension; R17 Unspecified jaundice; I70.0 Atherosclerosis of aorta
CPT/HCPCS: 36415; 80053; 80061; 83036; 85027

== ENCOUNTER 2024-06-15 19:22 | Emergency (ER) | payer MEDICARE, SELFPAY ==
[2024-06-15] VITALS (7 sets, daily range): BP systolic 102–139; BP diastolic 50–80; PULSE 74–98; RESP 15–19; TEMP 36.3; O2SAT 96–100
--- NOTE | ~2024-06-15 | XR_ITS ---
XR chest 1V Ordering provider: Brie Adams MD History: 84 years Female with . palpitation, dizzy . Comparison: September 17, 2021 FINDINGS: MEDIASTINUM: The cardiac silhouette is not enlarged. LUNGS: No infiltrates, effusions or pneumothorax. Underlying fibrotic changes. OTHER: No free air under the diaphragm. IMPRESSION: No acute cardiopulmonary pathology. Reviewed, dictated and finalized at location A.
--- OUTSIDE RECORDS SUMMARY | 2024-06-15 19:24 | XMS_ITS | Clinical Summary ---
Author Organization [facility] Address [address], [facility] [address] [place] [address] Phone Care Team Providers Care Senior It Recruiter Name Role Phone Ajay Gaytan MD Primary Care Provider + Medications polyethylene glycol (MIRALAX) Powder Use entire 255g bottle with 64oz of clear liquid as directed for colonoscopy prep. 255 g 0 7 Active Social History Tobacco Use Types Packs/Day Years Used Date Smoking Tobacco: Never Assessed Comments Unknown Sex and Gender Information Value Date Recorded Sex Assigned at Not on file Legal Sex Female 11:57 PM CDT Gender Identity Not on file Sexual Orientation Not on file Plan of Treatment Health Maintenance Due Date Last Done Comments DEXA Bone Density 1940 Hepatitis C Virus (HCV) Screening 1940 TdaP Immunization 1940 Pneumococcal Immunization (5 0+ years) (1 of 1 - PCV) 1991 Zoster Immunization (1 of 2) 1991 Respiratory Syncytial Virus (RSV) Immunization (Adult) (1 - 1-dose 75+ series) 02/18/2016 Influenza Immunization (#1) 2023 SARS-COV-2 Immunization ( season) 2023 Hepatitis B Immunization Aged Out No longer eligible based on patient's age to complete this topic Meningococcal Immunization (ACWY) Aged Out No longer eligible based on patient's age to complete this topic Rotavirus Immunization Aged Out No lo nger eligible based on patient's age to complete this topic Insurance MEDICARE [facility] Care Teams Senior It Recruiter Relationship Specialty Start Date End Date Ajay Gaytan MD [address] [place] [address] PCP - General Family Medicine 07/11/16
--- OUTSIDE RECORDS SUMMARY | 2024-06-15 19:24 | XMS_ITS | Clinical Summary ---
Author Organization [facility] [address] Address [address] [place] [address] Care Team Providers Care Bilingual [employer] Teacher Name Role Phone Ajay Gaytan MD Primary Care Prov ider Allergies Active Allergy Reactions Criticality Noted Date Comments Penicillins Medications aspirin 81 mg enteric coated tablet Take 1 tablet (81 mg total) by mouth 09/19/2021 Active lisinopriL (PRINIVIL,ZESTRI L) 10 mg tablet Take 1 tablet (10 mg total) by mouth daily 03/17/2021 Active metFORMIN (GLUCOPHAGE) 500 mg tablet Take 1 tablet (500 mg total) by mouth 2 (two) times a day 03/17/2021 Active nitroglycerin (NITROSTAT) 0.[address] under the tongue as needed 09/19/2021 Active resveratroL 250 mg capsule Take by mouth Active vitamin B complex with folic acid tablet Take 1 tablet by mouth daily Active cyanocobalamin, vitamin B-12, 5,000 mcg tablet, IR & ER, biphasic Take by mouth Active metoprolol XL (TOPROL-XL) 25 mg extended release tabletIndication s:Coronary artery disease involving hoopa coronary artery of hoopa heart without angina pectoris Take 1 Tablet (25 mg) by mouth daily. 90 tablet 3 09/01/2023 Active alpha lipoic acid 100 mg capsule Take by mouth Active Active Problems Problem Noted Date Diagnosed Date Encounter for screening colonoscopy 03/10/2024 History of colonic polyps 03/10/2024 Family history of colon cancer 03/10/2024 Statin intolerance 10/11/2021 Coronary artery disease invo lving hoopa coronary artery of hoopa heart without angina pectoris 10/11/2021 Ventricular premature beats 08/06/2013 Overview (06/27/2016): PVCs Hypertension 08/06/2013 Overview (06/27/2016): HYPERTENSION NOS Tobacco dependence syndrome 08/06/2013 Overview (06/27/2016): TOBACCO USE DISORDER Palpitations 08/06/2013 Overview (06/27/2016): PALPITATIONS 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/27/2016): MIXED HYPERLIPIDEMIA Premature atrial contraction 08/06/2013 Overview (06/28/2016): ATRIAL PREMATURE BEATS Encounters Date Type Department Care Team Description 05/26/2024 Results Follow-Up [facility] Medical [facility] [address] [place] [phone] Rebekah Jarrell NP 05/20/2024 1:30 PM PHOTOGRAPHIC PRESS SCREWMAKER Ancillary Procedure [facility] [address] [place] [phone] Palpitations 05/20/2024 11:30 AM PHOTOGRAPHIC PRESS SCREWMAKER Office Visit [facility] Medical [facility] [address] [place] [phone] Rebekah Jarrell NP Palpitations (Primary Dx) from Last 3 Months Surgical History Surgery Date Site/Laterality Comments APPENDECTOMY CHOLECYSTECTOMY TUBAL LIGATION CATARACT EXTRACTION Medical History Medical History Date Comments Hypertension Hyperlipidemia Diabetes mellitus (HCC) Past heart attack Social History Tobacco Use Types Packs/Day Years Used Date Smoking Tobacco: Every Day Cigarettes Tobacco Cessation:Ready to Q uit: Not Asked; Counseling Given: Not Answered AUDIT-C Answer Date Recorded Q1: How often do you have a drink containing alc ohol? Monthly or less 10/11/2021 Q2: How many drinks containi ng alcohol do you have on a typical day when you are drinking? 1 or 2 10/11/2021 Q3: How often do you have si x or more drinks on one occasion? Never 10/11/2021 Comments Unknown Sex and Gender Information Value Date Recorded Sex Assigned at Not on file Legal Sex Female 1:43 AM PHOTOGRAPHIC PRESS SCREWMAKER Gender Identity Not on file Sexual Orientation Not on file Obstetrics History Last Filed Vital Signs Vital Sign Reading Time Taken Comments Blood Pressure 116/50 05/20/2024 11:22 AM PHOTOGRAPHIC PRESS SCREWMAKER Pulse 76 05/20/2024 11:22 AM PHOTOGRAPHIC PRESS SCREWMAKER Temperature - - Respiratory Rate - - Oxygen Saturation 98% 05/20/2024 11:22 AM PHOTOGRAPHIC PRESS SCREWMAKER Inhaled Oxygen Concentration - - Weight 53.1 kg (117 lb) 05/20/2024 11:22 AM PHOTOGRAPHIC PRESS SCREWMAKER Height 152.4 cm (5') 05/20/2024 11:22 AM PHOTOGRAPHIC PRESS SCREWMAKER Body Mass Index 22.85 05/20/2024 11:22 AM PHOTOGRAPHIC PRESS SCREWMAKER Plan of Treatment Upcoming Encounters Date Type Department Care Team (Late st Contact Info) Description 09/14/2024 9:30 AM CDT Hospital Encounter [address] [id number] Adebayo Valderrama DO [address] [facility] [facility] [address] [place] [address] [place] [phone] 09/14/2024 9:30 AM CDT - 09/14/2024 10:00 AM CDT Surgery [address] [address] Adebayo Valderrama DO [address] [facility] [address] [place] [address] [place] [id number] COLONOSCOPY Scheduled Procedures Name Priority Associated Diagnoses Date/Ti me COLONOSCOPY Encounter for screening colonoscopy History of colonic polyps Family history of colon cancer 09/14/2024 9:30 AM CDT Health Maintenance Due Date Last Done Comments Depression Screening 1940 Fall Risk Assessment 1940 Osteoporosis Screening-Bone Density Scan 1940 DTaP/Tdap/Td Vaccine (1 - Tdap) 02/18/1952 Hepatitis B Screening 1959 Pneumococcal vaccine 65+ (1 of 2 - PCV) 02/18/1960 Zoster Vaccine (1 of 2) 1991 Well Visit 65+ 2006 Covid-19 Vaccine (5 - 2023-2 5 season) 2023 08/16/2021, 03/22/2021, 05/04/2020, Additional history exists Influenza Vaccine (#1) 2023 Procedures Procedure Name Priority Date/Time Associated Diagnosis Comments HOLTER MONITOR 48 HR Routine 05/23/2024 10:24 AM PHOTOGRAPHIC PRESS SCREWMAKER Palpitations from Last 3 Months Results * 48 HR Holter Monitor (05/23/2024 10:24 AM PHOTOGRAPHIC PRESS SCREWMAKER) Anatomical Region Laterality Modality Electrocardiogra phy Narrative 05/25/2024 3:19 PM PHOTOGRAPHIC PRESS SCREWMAKER AMBULATORY [facility] REPORT Patient Name: Luana Martinez Date of : 1940 Requesting Physician: Dr. Zamudio Date of interpretation: 05/25/24 Type of monitor : 48 hour Holter monitor Date of the study/Enrollment period: 05/20/2024 Indication: Palpitations Quality of the study: Fair Interpretation: Predominant underlying rhythm is sinus rhythm, heart rate ranged between 53 beats per minute to 132 beats per minute, average heart rate 77 beats per minute. QRS duration within normal limits. One pause was noted at 3.7 seconds without associated symptoms. Occasional ventricular and supraventricular ectopy was noted with a burden of 1 less than 1% and 2% respectively for the duration of the study. No symptoms or patient triggered events. Conclusions: Predominant underlying rhythm is sinus rhythm, average heart rate 77 beats per minute. One pause lasting for 3.7 seconds was noted without associated symptoms. Occasional ventricular and supraventricular ectopy. No symptoms reported. Clinical correlation. Voice recognition software was used to complete this document, therefore, call center agent variances may occur. Sukumar Morrow MD, [facility] 05/25/24 Procedure Note Sukumar Morrow MD - 05/25/2024 AMBULATORY [facility] REPORT Patient Name: Luana Martinez Date of : 1940 Requesting Physician: Dr. Zamudio Date of interpretation: 05/25/24 Type of monitor : 48 hour Holter monitor Date of the study/Enrollment period: 05/20/2024 Indication: Palpitations Quality of the study: Fair Interpretation: Predominant underlying rhythm is sinus rhythm, heart rateranged between 53 beats per minute to 132 beats per minute, average heartrate 77 beats per minute. QRS duration within normal limits. One pausewas noted at 3.7 seconds without associated symptoms. Occasionalventricular and supraventricular ectopy was noted with a burden of 1 lessthan 1% and 2% respectively for the duration of the study. No symptoms orpatient triggered events. Conclusions: Predominant underlying rhythm is sinus rhythm, average heart rate 77 beatsper minute. One pause lasting for 3.7 seconds was noted without associated symptoms. Occasional ventricular and supraventricular ectopy. No symptoms reported. Clinical correlation. Voice recognition software was used to complete this document, therefore,call center agent variances may occur. Sukumar Morrow MD, [facility] 05/25/24 Rebekah Jarrell NP [facility] Final Result from Last 3 Months Insurance MEDICARE [facility] MEDICARE [facility] Care Teams Bilingual [employer] School Teacher Relationship Specialty Start Date End Date Ajay Gaytan MD [address] [place] [address] PCP - General Family Medicine 10/11/21
--- OUTSIDE RECORDS SUMMARY | 2024-06-15 19:24 | XMS_ITS | Encounter Summary ---
Author Organization [facility] Healthcare Address [address] [place] [address] Care Team Providers Care Framing Mill Supervisor Name Role Phone Ajay Gaytan MD Primary Care Prov ider Encounter Details Date Type Department Care Team (Late st Contact Info) Description 05/26/2024 Results Follow-Up [facility] Medical [facility] Cardiology [address] [place] [address] Rebekah Jarrell NP [address] [facility] 162 [facility] [address] [place] [address] Social History Tobacco Use Types Packs/Day Years Used Date Smoking Tobacco: Every Day Cigarettes AUDIT-C Answer Date Recorded Q1: How often [...] on file Legal Sex Female 1:43 AM MATHEMATICIAN Gender Identity Not on file Sexual Orientation Not on file documented as of this encounter Plan of Treatment Upcoming Encounters Date Type Department Care Team (Late st Contact Info) Description 09/14/2024 9:30 AM CDT Hospital Encounter [facility] [address] [place] [address] Adebayo Valderrama, DO [address] [address] 09/14/2024 9:30 AM CDT - 09/14/2024 10:00 AM CDT Surgery [facility] [address] [place] [address] Adebayo Valderrama, DO [address] [place] [address] [place] [address] COLONOSCOPY Scheduled Procedures Name Priority Associated Diagnoses Date/Ti me COLONOSCOPY Encounter for screening colonoscopy History of colonic polyps Family history of colon cancer 09/14/2024 9:30 AM CDT documented as of this encounter Visit Diagnoses Not on filedocumented in this encounter Care Teams Framing Mill Supervisor Relationship Specialty Start Date End Date Ajay Gaytan MD [address] [place] [address] PCP - General Family Medicine 10/11/21 documented as of this encounter
--- OUTSIDE RECORDS SUMMARY | 2024-06-15 19:24 | XMS_ITS | Referral Summary ---
Author Organization [facility] [address] [place] [address] 162 Address [address] [facility] [address] [place] [address] Care Team Providers Care Surgical Assistant Certified Name Role Phone Ajay Gaytan MD Primary Care Prov ider Encounters Date Type Department Care Team Description 05/26/2024 Results Follow-Up [facility] Medical [facility] Cardiology [address] [place] [address] 162 [address] [place] [address] Rebekah Jarrell NP 05/20/2024 1:30 PM SEAMER PANTY HOSE Ancillary Procedure [facility] Cardiology [address] [place] [address] [address] [place] [address] Palpitations 05/20/2024 11:30 AM SEAMER PANTY HOSE Office Visit [facility] Cardiology [address] [place] [address] [address] [place] [address] Rebekah Jarrell NP Palpitations (Primary Dx) from Last 3 Months Allergies Active Allergy Reactions Criticality Noted Date [...] extended release tabletIndication s:Coronary artery disease involving [place] coronary artery of [place] heart without angina pectoris Take 1 Tablet (25 mg) by mouth daily. 90 tablet 3 09/01/2023 Active alpha lipoic acid 100 mg capsule Take by mouth Active Active Problems Problem Noted Date Diagnosed Date Encounter for screening colonoscopy 03/10/2024 History of colonic polyps 03/10/2024 Family history of colon cancer 03/10/2024 Statin intolerance 10/11/2021 Coronary artery disease invo lving [place] coronary artery of [place] heart without angina pectoris 10/11/2021 Ventricular premature beats 08/06/2013 Overview (06/27/2016): PVCs Hypertension 08/06/2013 Overview (06/27/2016): HYPERTENSION NOS Tobacco dependence syndrome 08/06/2013 Overview (06/27/2016): TOBACCO USE DISORDER Palpitations 08/06/2013 Overview (06/27/2016): PALPITATIONS 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/27/2016): MIXED HYPERLIPIDEMIA Premature atrial contraction 08/06/2013 Overview (06/28/2016): ATRIAL PREMATURE BEATS Social History Tobacco Use Types Packs/Day Years [...] on file Legal Sex Female 1:43 AM SEAMER PANTY HOSE Gender Identity Not on file Sexual Orientation Not on file Last Filed Vital Signs Vital Sign Reading Time Taken Comments Blood Pressure 116/50 05/20/2024 11:22 AM SEAMER PANTY HOSE Pulse 76 05/20/2024 11:22 AM SEAMER PANTY HOSE Temperature - - Respiratory Rate - - Oxygen Saturation 98% 05/20/2024 11:22 AM SEAMER PANTY HOSE Inhaled Oxygen Concentration - - Weight 53.1 kg (117 lb) 05/20/2024 11:22 AM SEAMER PANTY HOSE Height 152.4 cm (5') 05/20/2024 11:22 AM SEAMER PANTY HOSE Body Mass Index 22.85 05/20/2024 11:22 AM SEAMER PANTY HOSE Plan of Treatment Upcoming Encounters Date Type Department Care Team (Late st Contact Info) Description 09/14/2024 9:30 AM CDT Hospital Encounter [address] [address] Adebayo Valderrama, 4 [facility] DR ALMAZ[place] [address] [place] [address] 09/14/2024 9:30 AM CDT - 09/14/2024 10:00 AM CDT Surgery [address] [address] Adebayo Valderrama DO 4 [facility] [address] ALMAZ[place] [address] [place] [address] COLONOSCOPY Scheduled Procedures Name Priority Associated Diagnoses Date/Ti me COLONOSCOPY Encounter for screening colonoscopy History of colonic polyps Family history of colon cancer 09/14/2024 9:30 AM CDT Procedures Procedure Name Priority Date/Time Associated Diagnosis Comments HOLTER MONITOR 48 HR Routine 05/23/2024 10:24 AM SEAMER PANTY HOSE Palpitations from Last 3 Months Results * 48 HR Holter Monitor (05/23/2024 10:24 AM SEAMER PANTY HOSE) Anatomical Region Laterality Modality Electrocardiogra phy Narrative 05/25/2024 3:19 PM SEAMER PANTY HOSE AMBULATORY EARTH MOVING MACHINE OPERATOR REPORT Patient Name: Luana Martinez Date of [...] was used to complete this document, therefore, parachute panel joiner variances may occur. Sukumar Morrow MD, [facility] 05/25/24 Procedure Note Sukumar Morrow MD - 05/25/2024 AMBULATORY EARTH MOVING MACHINE OPERATOR REPORT Patient Name: Luana Martinez Date of [...] software was used to complete this document, therefore,parachute panel joiner variances may occur. Sukumar Morrow MD, [facility] 05/25/24 Rebekah Jarrell NP CV CARDIAC SERVICES PROCE DURES Final Result from Last 3 Months Insurance MEDICARE [facility] MEDICARE [facility] Care Teams Surgical Assistant Certified Relationship Specialty Start Date End Date Ajay Gaytan MD [address] [place] [address] PCP - General Family Medicine 10/11/21
--- OUTSIDE RECORDS SUMMARY | 2024-06-15 19:24 | XMS_ITS | Continuity of Care Document ---
Author Organization [facility] Address [address] [place] [address] Phone Care Team Providers Care Kapok Machine Operator Name Role Phone Kevin Jeffries Unavailable Unavailable Procedures Procedure Date Office/outpatient Visit, Est Dilated Macular Exam Performed 10 Counseling For Antioxidant Supplements M Dilated Retinal Exam W Interpretation Valentine Post-op Follow-up Visit Post-op Follow-up Visit Post-op Follow-up Visit Remove Cataract, Insert Lens PreOp Assessment Performed Post-op Follow-up Visit IOLMaster-Professional Post-op Follow-up Visit Remove Cataract, Insert Lens PreOp Assessment Performed Eye Exam, New Patient Dilated Retinal Exam W Interpretation Valentine Script Printed/Phoned Pt Requ Or Pharm N ot Availab IOLMaster Cataract Kit SEC MV Tax - Medical Advance Directives Directive Yes / No Effective Date File Name No Information Encounters Encounter Description Practice Location Reason(s) For Visit Diagnoses Date Provider Providers Copied on Encounter Office/outpat ient Visit, Est [facility], [address], [place], [place], [id number], [place] tel:[phone] [facility] No Information 0 Krishnasamy Kevin. [address], [place], [address], [place]. tel:[phone] [facility], [address], [place], [place], [id number], [place] tel:[phone] [facility] No Information 6-200 9 Krishnasamy Kevin. [address] [facility] [address], [place], [address], [place]. tel:[phone] [facility], [address], [place], [place], [id number], [place] tel:[phone] [facility] No Information 2 1-200 9 Krishnasamy Kevin. [address] [facility] [address], [place], [address], [place]. tel:[phone] [facility], [address], [place], [place], [id number], [place] tel:[phone] [facility] No Information 4-200 9 Krishnasamy Kevin. [address] [facility] [address], [place], [address], [place]. tel:[phone] [facility], [address], [place], [place], [id number], [place] tel:[phone] [facility] No Information 3-200 9 Krishnasamy Kevin. [address] [facility] [address], [place], [address], [place]. tel:[phone] [facility], [address], [place], [place], [id number], [place] tel:[phone] [facility] No Information 4-200 9 Krishnasamy Kevin. [address] [facility] [address], [place], [address], [place]. tel:[phone] Referring Provider: Kevin gutiérrez, [address] [facility] [address], [place], [place], [facility]. tel:[phone] [facility], [address], [place], [place], [id number], tel:[phone] [facility] No Information 9 Krishnasamy Kevin. [facility] [address], [place], [facility] [place], [place]. tel:[phone] [facility], [address], [place], [place], [id number], tel:[phone] [facility] No Information 200 9 Krishnasamy Kevin. [address] [place] [address], [facility] [place], . tel:[phone] [facility], [address], [place], [place], [id number], tel:[phone] [facility] No Information 9 Krishnasamy Kevin. [address] [place] [address], [facility] [place], [place]. tel:[phone] Referring Provider: Kevin gutiérrez, [address] [place], [place] [address]ate [address], [facility]. tel:[phone] Family History Family Member Type Diagnosis Age At Onset No Information Payers Payer name Insurance type Covered green party ID Authoriza tiremi(s) [place] [id number] AARP Medicare Supp [place] [id number] Social History Type Description Quantity Date Captured Comments Sex Female Smoking Status No Information Chief Complaint And Reason For Visit No Information Reason For Referral Reason For Referral No Information History Of Present Illness Encounter Date Complaint History Of Prese nt Illness No Information Functional Status Date Functional Assessmen t No Information Instructions Date Instruction Additional Infor mation No Information Assessments Type Assessment Date No Information Patient Care Teams Name Effective Dates (start - stop) Status Members No Information
--- OUTSIDE RECORDS SUMMARY | 2024-06-15 19:24 | XMS_ITS | Clinical Summary ---
Author Organization [facility] Address [address] [facility] [address] Galindo: Epic Prelude ADT [place] [address] Care Team Providers Care Housing Assistant Property Manager Name Role Phone Unavailable Primary Care Provider Unavailabl e Medications aspirin (ECOTRIN EC) 81 mg Tablet, Delayed Release (E.C.) Take 1 Tablet (81 mg) by mouth daily in the morning. 60 Tablet 2 Active metoprolol succinate (TOPROL XL) 25 mg Extended Release 24 hour tablet Take 1 Tablet (25 mg) by mouth daily. 30 Tablet 1 09/19/2021 2:53 PM CDT 2 Active nitroglycerin (NITROSTAT) 0.4 mg Tablet, Sublingual PLACE ONE TABLET UNDER THE TONGUE EVERY 5 MINUTES NEEDED FOR CHEST PAIN. IF ON THE THIRD TABLET, CALL 911. DO NOT EXCEED 3 DOSES PER EPISODE. 25 Tablet 09/19/2021 2:53 PM CDT 2 Active metoprolol succinate (TOPROL XL) 25 mg Extended Release 24 hour tablet Take 1 Tablet (25 mg) by mouth daily. 90 Tablet 3 06/02/2024 12:07 PM CDT 4 Active metFORMIN (GLUCOPHAGE) 500 mg tablet TAKE ONE TABLET BY MOUTH TWICE A DAY 180 Tablet 3 06/02/2024 12:07 PM CDT 4 Active lisinopriL (PRINIVIL) 10 mg tablet Take 1 Tablet (10 mg) by mouth daily. 90 Tablet 3 06/02/2024 12:07 PM CDT 4 Active blood sugar diagnostic (Accu-Chek [place] Plus test strp) Strip USE TO TEST BLOOD SUGARS ONCE DAILY 50 Each 4 06/15/2024 11:28 AM CDT 5 Active blood sugar diagnostic Strip USE TO TEST BLOOD SUGARS ONCE DAILY 50 Each 4 04/29/2024 11:31 AM REGIONAL DIRECTOR 4 06/10/19 25 Discontinued Social History Tobacco Use Types Packs/Day Years Used Date Smoking Tobacco: Never Assessed Comments Unknown Sex and Gender Information Value Date Recorded Sex Assigned at Not on file Legal Sex Female 3:27 PM CDT Gender Identity Not on file Sexual Orientation Not on file Plan of Treatment Health Maintenance Due Date Last Done Comments DTAP/TDAP/TD VACCINES (1 - Tdap) 02/18/1960 PNEUMOCOCCAL VACCINE 50+ YEARS (1 of 1 - PCV) 02/17/19 91 ZOSTER VACCINE (1 of 2) 1991 OSTEOPOROSIS SCREENING 2006 RSV VACCINE (60+ or ) (1 - 1-dose 75+ series) 02/18/2016 INFLUENZA VACCINE (#1) 2023 Insurance RX [employer] PLANS (INTERNAL) [facility] RX ALLWIN DATA Medicare Part B RX [employer] RX Member Subscriber Plan / Payer (Ef fective for All Dates) Name:TAMMY GROVES Relation to Subscriber:Self Name:Tammy Groves Payer ID:Not on file Group ID:[id number] Type:RX Medicare Part D Address: [place]
--- NOTE | 2024-06-15 19:25 | ECG_ITS ---
Test Date: 2024-06-15 19:32:49 Measurements Intervals [place] Rate: 106 P: 79 MS: 158 QRS: 40 QRSD: 80 T: 121 QT: 310 QTc: 413 Interpretive Statements SINUS TACHYCARDIA WITH FREQUENT SUPRAVENTRICULAR PREMATURE COMPLEXES LOW QRS VOLTAGE IN PRECORDIAL LEADS [QRS DEFLECTION < 1.0 mV IN CHEST LEADS] NONSPECIFIC ST & T-WAVE ABNORMALITY No previous ECG available for comparison Electronically Signed On 06-16-2024 10:50:00 CDT by Vineet Fairchild M.D.
[2024-06-15 19:47] LABS: Basophils Absolute Auto 0.1 K/mm3 (0.0-0.1); Basophils Percent Auto 0.8 % (0.2-1.2); Eosinophils Absolute Auto 0.1 K/mm3 (0-0.3); Eosinophils Percent Auto 1.3 % (0-4.4); Hematocrit 41.4 % (37.0-47.0); Hemoglobin 13.6 g/dL (12.0-15.0); Immature Granulocyte Absolute 0.02 K/mm3 (0.00-0.031); Immature Granulocyte Percent A 0.2 % (0-0.5); Lymphocytes Absolute Auto 2.69 K/mm3 (0.9-3.2); Lymphocytes Percent Auto 30.6 % (18.3-44.2); Mean Corpuscular HGB Conc 32.9 g/dl (32-36); Mean Corpuscular Hemoglobin 30.4 pg (26-34); Mean Corpuscular Volume 92.6 fl (80-100); Mean Platelet Volume 9.1 fl (7.4-10.4); Monocytes Absolute Auto 0.7 K/mm3 (0.1-0.6); Monocytes Percent Auto 7.6 % (2.6-8.5); Neutrophils Absolute Auto 5.2 K/mm3 (1.3-6.7); Neutrophils Percent Auto 59.5 % (45.5-73.1); Platelet Count Result 271 k/mm3 (150-375); Red Blood Count 4.47 M/mm3 (4.2-5.4); Red Cell Distribution Width 12.7 % (11.5-14.5); White Blood Count 8.8 K/mm3 (4.5-10.0)
[2024-06-15 19:58] LABS: INR 0.9; Partial Thromboplastin Time 25.4 Seconds (22.3-36.8); Prothrombin Time 12.9 Seconds (11.1-14.7)
[2024-06-15 19:59] LABS: Alanine Aminotransferase 11 U/L (6-35); Albumin Level 4.6 g/dL (3.5-5.1); Alkaline Phosphatase 101 U/L (38-126); Anion Gap 7 mmol/L (4-12); Aspartate Amino Transferase 22 U/L (14-36); Bilirubin,Total 0.7 mg/dL (0.2-1.3); Blood Urea Nitrogen 11 mg/dL (7-17); Calcium 9.9 mg/dL (8.4-10.2); Carbon Dioxide 29 mmol/L (22-30); Chloride 100 mmol/L (98-107); Estimated CRCL calculation 36 ml/min; Estimated Glomerular Filt Rate > 60; Glucose 128 mg/dL (65-110); Lipase 190 U/L (23-300); Sodium 136 mmol/L (137-145)
[2024-06-15 20:10] LABS: Troponin I < 0.012 ng/mL (0.000-0.034)
--- NOTE | 2024-06-15 21:09 | ED.ARRPALP ---
HPI - Arrhythmia/Palpitations General Chief Complaint: Arrhythmia/Palpitations Stated Complaint: Irregular heartbeat-dizziness Time Seen by Provider: 06/15/24 20:33 Source: patient Limitations: no limitations History of Present Illness HPI narrative: Patient presents with complaint of an irregular heartbeat and palpitations. She reports feeling a sense of dizziness while she walks but denies that it is unsteadiness. She denies headache during these episodes seem to developed a slight on after. These episodes last name to 10 minutes and are constant lying her left side. They weak and her from her sleep. The episodes typically occur at night while lying on her left side. She states she has a history of a myocardial infarction 2021 that had a 20% occlusion of the ramus but without stenting. She wore a Holter event monitor for 48 hours approximately 3 weeks ago and states that this was unremarkable. Her appraiser boats and marine is Dr Smith. She called their office today and states that Milly said to present to the ED if symptoms worse and she felt they were worse today. Report from event monitor essentially states: NSR ranging 53-132 bpm with average 72. Normal QRS. 1 pause 3.7s. Occasional ventricular and supraventricular ectopy <1 and 2% respectively. No symptoms noted during these times. She feels the frequency is increasing. No shortness of breath. Denies ear pain or tinnitus. Denies feeling off balance. Denies vertigo, a feeling of spinning or the room spinning. States she feels a bit lightheaded but without disequilibrium. No unilateral symptoms or slurred speech. No chest pain. Related Data Home Medications ?Medication ?Instructions ?Recorded ?Confirmed ?Last Taken ?Type B Complex-Vitamin B12 1 tablet PO DAILY 09/18/21 10/08/23 Unknown History B-complex with vitamin C 1 tablet PO DAILY 09/30/21 10/08/23 Unknown History alpha lipoic acid 200 mg tablet 200 mg PO DAILY 09/30/21 10/08/23 Unknown History resveratrol 250 mg capsule 1,450 mg PO DAILY 09/30/21 10/08/23 Unknown History Allergies Allergy/AdvReac Type Severity Reaction Status Date / Time Penicillins Allergy Severe HIVES AND Verified 06/15/24 19:23 DIFFICUTLY BREATHING atorvastatin AdvReac Intermediate Muscle Verified 06/15/24 19:23 Spasms ezetimibe AdvReac Intermediate Muscle Verified 06/15/24 19:23 Spasms welchol AdvReac Intermediate Muscle Uncoded 06/15/24 19:23 Spasms PMFSH Past Medical History Medical History Stenosis of ramus intermedius coronary artery Non-ST elevation VT (NSTEMI) (08/2021) Surgical History Surgical History History of hemorrhoidectomy (2009) History of tubal ligation (1967) History of cholecystectomy (1994) History of tonsillectomy (~1947) History of appendectomy (1974) Family History Family History Mother Cerebral aneurysm Father Alzheimer's dementia Heart disease Sibling Bladder cancer Social History Social History (Updated 09/30/21 @ 13:15 by Yolanda Sawyer MA) Smoking packs per day: 0.5 Smoking cigarettes per day: 10.0 Years smoked: 40 Smoking pack-years: 20.00 Smoking status: Current every day smoker Tobacco type: cigarettes Second hand tobacco smoke exposure: No Alcohol intake: current Drinks per week: 1 Substance use: never Substance use type: does not use Living arrangements: with family Occupation/Education: retired Gender identity (if verbalized by the patient): Female Sexual Orientation (if Verbalized by the Patient): Straight or Heterosexual Spiritual care concerns: No Agree to blood products: Yes Exam Narrative: GENERAL: Well-appearing, well-nourished, and in no acute distress. HEAD: Normocephalic, atraumatic. EYES: Non injected, non icteric ENT: Nares clear, no rhinorrhea or epistaxis. NECK: Supple. CHEST: Speaking in full sentences. No respiratory distress. HEART: Patient does appear to have a dropped beat on auscultation with some regularity (lub-dub, lub-dub, lub-dub, lub-dub...(pause)) followed by repeating pattern but otherwise without prominent murmur. This pause is nonperfusing whereas the others correspond with 2+ radial pulse. ABDOMEN: Soft, nondistended. EXTREMITIES: Normal range of motion. No lower extremity edema. SKIN: Warm, dry, no rash. NEURO: No focal deficits. Alert and oriented x3. PSYCH: Normal mood and affect. Course Vital Signs Vital signs: Vital Signs Temperature 97.3 F L 06/15/24 19:25 Pulse Rate 98 06/15/24 19:25 Respiratory Rate 15 06/15/24 19:25 Blood Pressure 139/50 L 06/15/24 19:25 Pulse Oximetry 100 06/15/24 19:25 Oxygen Delivery Room Air 06/15/24 19:25 Temperature 97.3 F L 06/15/24 19:25 Pulse Rate 74 06/15/24 23:34 Respiratory Rate 19 06/15/24 23:34 Blood Pressure 102/80 06/15/24 23:34 Pulse Oximetry 96 06/15/24 23:34 Oxygen Delivery Room Air 06/15/24 21:05 MDM - Arrhythmia/Palpitations MDM Narrative Medical decision making narrative: Patient presents with complaint of palpitation and irregular heartbeat and feeling dizzy with these episodes which last 5-10 minutes. She states these episodes especially occur if she lays on her left side. Recently wore a Holter monitor for 48 hours approximately 3 weeks ago which was generally unremarkable. Railway Track Plant Operator is Dr Smith. In the emergency department she is afebrile with acceptable vital signs. She does have a low diastolic blood pressure but mean arterial pressure initially 80mmHg and then 72mmHg. Patient does appear to have a dropped beat on auscultation with some regularity (lub-dub, lub-dub, lub-dub, lub-dub...(pause) followed by repeat). Troponin normal. Ortho stats are reviewed and appropriate. Patient ambulates to the bathroom without difficulty and with a steady gait by report. I do believe patient would benefit from follow up with her appraiser boats and marine , possible consideration of wearing an event monitor for a longer duration of time versus medication changes given she states the frequency of episodes is increasing. Differential Diagnosis Differential diagnosis: Likely palpitations, anxiety, sinus tachycardia, artial fibrillation, artial flutter, ventricular premature beats, supraventricular tachycardia, ventricular tachycardia and WPW Lab Data Attestation: I reviewed the patient's lab results. Lab results narrative: CBC unremarkable; Normal renal function. Very mild hyponatremia (136 versus 137 with hyperglycemia) but not markedly abnormal 06/15/24 19:34 06/15/24 19:40 Labs: Lab Results 06/15/24 06/15/24 06/15/24 Range/Units 19:34 19:35 19:40 WBC 8.8 (4.5-10.0) K/mm3 RBC 4.47 (4.2-5.4) M/mm3 Hgb 13.6 (12.0-15.0) g/dL Hct 41.4 (37.0-47.0) % MCV 92.6 (80-100) fl MCH 30.4 (26-34) pg MCHC 32.9 (32-36) g/dl RDW 12.7 (11.5-14.5) % Plt Count 271 (150-375) k/mm3 MPV 9.1 (7.4-10.4) fl Immature Gran % (Auto) 0.2 (0-0.5) % Neut % (Auto) 59.5 (45.5-73.1) % Lymph % (Auto) 30.6 (18.3-44.2) % [place] % (Auto) 7.6 (2.6-8.5) % Eos % (Auto) 1.3 (0-4.4) % Baso % (Auto) 0.8 (0.2-1.2) % Lymph # (Auto) 2.69 (0.9-3.2) K/mm3 [place] # (Auto) 0.7 H (0.1-0.6) K/mm3 Eos # (Auto) 0.1 (0-0.3) K/mm3 Baso # (Auto) 0.1 (0.0-0.1) K/mm3 Abs Immat Gran (auto) 0.02 (0.00-0.031) K/mm3 Absolute Neuts (auto) 5.2 (1.3-6.7) K/mm3 Absolute Nucleated RBC 0.000 (0.0-0.012) K/mm3 Nucleated RBC % 0.0 (0.0-0.2) % PT 12.9 (11.1-14.7) Seconds INR 0.9 APTT 25.4 (22.3-36.8) Seconds Sodium 136 L (137-145) mmol/L Potassium 4.0 (3.4-5.0) mmol/L Chloride 100 (98-107) mmol/L Carbon Dioxide 29 (22-30) mmol/L Anion Gap 7 (4-12) mmol/L BUN 11 (7-17) mg/dL Creatinine 0.73 (0.7-1.0) mg/dL Estim Creat Clear Calc 36 ml/min Estimated GFR > 60 (59 - ) Glucose 128 H (65-110) mg/dL Calcium 9.9 (8.4-10.2) mg/dL Magnesium 2.0 (1.6-2.3) mg/dL Total Bilirubin 0.7 (0.2-1.3) mg/dL AST 22 (14-36) U/L ALT 11 (6-35) U/L Alkaline Phosphatase 101 (38-126) U/L Troponin I < 0.012 (0.000-0.034) ng/mL Total Protein 7.0 (6.3-8.2) g/dL Albumin 4.6 (3.5-5.1) g/dL Lipase 190 (23-300) U/L TSH 1.620 (0.465-4.680) uIU/mL Imaging Data Radiologist's impression: IMPRESSION: No acute cardiopulmonary pathology. ECG Data EKG #1: Attestation: I personally reviewed and interpreted this ECG as follows: ECG completion date: 06/15/24 ECG completion time: 19:32 Interpretation: Sinus tachycardia rate of 106 beats per minute. There supraventricular complexes. NV interval 158. QRS 80. QT/QTC 310/372. Good R-wave progression across the precordial leads. No T-wave inversions. Discharge Plan Discharge Clinical Impression: Palpitations, Dizziness Patient Disposition: Home, Self-Care Condition: Stable Instructions: Antibiotic Form, Heart Palpitations (ED), Lightheadedness (ED), Dizziness (ED) Additional Instructions: Follow-up with your appraiser boats and marine regarding your persistent symptoms that are increasing in frequency. They may recommend medication changes or wearing an event monitor again for a longer duration,etc. Return to the emergency department with any new or worsening symptoms. Your workup here was otherwise unremarkable including chest x-ray, EKG, and labs including troponin (cardiac enzyme), electrolytes, and thyroid function. Continue taking your medication as prescribed for now. Patient Language: Comoran Prescriptions: No Action B-complex with vitamin C Tablet 1 tablet PO DAILY alpha lipoic acid 200 mg tablet 200 mg PO DAILY resveratrol 250 mg capsule 1,450 mg PO DAILY B Complex-Vitamin B12 1 tablet PO DAILY aspirin 81 mg Tablet,Delayed Release (Dr/Ec) 81 mg PO QAM Qty: 60 0RF metoprolol succinate 25 mg tablet extended release 24 hr 25 mg PO DAILY Qty: 30 1RF nitroglycerin 0.4 mg tablet, sublingual 0.4 mg sublingual Q5M PRN (Reason: chest pain) Qty: 5 5RF Rx Instructions: do not exceed 3 doses per episode metformin 500 mg tablet See Rx Instructions .ROUTE .COMPLEX Qty: 180 3RF Dose Instruction: TAKE ONE TABLET BY MOUTH TWICE A DAY Rx Instructions: TAKE ONE TABLET BY MOUTH TWICE A DAY lisinopril 10 mg tablet See Rx Instructions .ROUTE .COMPLEX Qty: 90 3RF Dose Instruction: Take 1 Tablet (10 mg) by mouth daily. Rx Instructions: Take 1 Tablet (10 mg) by mouth daily. (DME) Accu-Chek Morelia Plus test strp Strip See Rx Instructions .ROUTE .COMPLEX Qty: 50 4RF Dose Instruction: USE TO TEST BLOOD SUGARS ONCE DAILY Rx Instructions: USE TO TEST BLOOD SUGARS ONCE DAILY Follow-up/Referrals: Ronny Smith MD [Physician] - Ajay Gaytan MD [Primary Care Provider] - Time of Disposition: 23:12
--- OUTSIDE RECORDS SUMMARY | 2024-06-15 21:12 | XMS_ITS | Clinical Summary ---
Author Organization [facility] Address [address], [facility] [address] [place] [address] Phone Care Team Providers Care Group Supervisor Yard Name Role Phone Ajay Gaytan MD Primary [...] age to complete this topic Insurance MEDICARE [facility] Care Teams Group Supervisor Yard Relationship Specialty Start Date End Date Ajay Gaytan MD [address] [place] [address] PCP - General Family Medicine 07/11/16
--- OUTSIDE RECORDS SUMMARY | 2024-06-15 21:12 | XMS_ITS | Encounter Summary ---
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 Gender Identity Not on file Sexual Orientation Not on file documented as of this encounter Plan of Treatment Upcoming Encounters Date Type Department Care Team (Late st Contact Info) Description 09/14/2024 9:30 AM CDT Hospital Encounter [facility] [address] [place] [address] Adebayo Valderrama, DO [address] [address] 09/14/2024 9:30 AM CDT - 09/14/2024 10:00 AM CDT Surgery [facility] [address] [place] [address] Adebayo Valderrama, DO [address] [place] [address] [place] [address] COLONOSCOPY Scheduled Procedures Name Priority Associated Diagnoses Date/Ti me COLONOSCOPY Encounter for screening colonoscopy History of colonic polyps Family history of colon cancer 09/14/2024 9:30 AM CDT documented as of this encounter Visit Diagnoses Not on filedocumented in this encounter Care Teams Resident Care Manager Rn Relationship Specialty Start Date End Date Ajay Gaytan MD [address] [place] [address] PCP - General Family Medicine 10/11/21 documented as of this encounter
--- OUTSIDE RECORDS SUMMARY | 2024-06-15 21:12 | XMS_ITS | Continuity of Care Document ---
Author Organization [facility] Address [address] [place] [address] Phone Care Team Providers Care Chemistry Physics Teacher Name Role Phone Kevin Jeffries Unavailable Unavailable [...] Copied on Encounter [facility] [address], [place], [place], [id number], [place] tel:[phone] [facility] No Information 0 Krishnasamy Kevin. [address], [place], [address], [place]. tel:[phone] [facility] Eye [facility], [address], [place], [place], [id number], [place] tel:[phone] [facility] No Information 6-200 9 Krishnasamy Kevin. [address] [facility] [address], [place], [address], [place]. tel:[phone] [facility], [address], [place], [place], [id number], [place] tel:[phone] [facility] No Information 2 1-200 9 Krishnasamy Kevin. [address] [facility] [address], [place], [address], [place]. tel:[phone] [facility], [address], [place], [place], [id number], [place] tel:[phone] [facility] No Information 4-200 9 Krishnasamy Kevin. [address] [facility] [address], [place], [address], [place]. tel:[phone] [facility] Eye [facility], [address], [place], [place], [id number], [place] tel:[phone] [facility] No Information 3-200 9 Krishnasamy Kevin. [address] [facility] [address], [place], [address], [place]. tel:[phone] [facility] Eye [facility], [address], [place], [place], [id number], [place] tel:[phone] [facility] No Information 4-200 9 Krishnasamy Kevin. [address] [facility] [address], [place], [address], [place]. tel:[phone] Referring Provider: Kevin gutiérrez, [address] [facility] [address], [place], [place], [facility]. tel:[phone] [facility], [address], [place], [place], [id number], tel:[phone] [facility] No Information 9 Krishnasamy Kevin. [facility] [facility] [address], [place], [facility], [place]. tel:[phone] [facility], [address], [place], [place], [id number], tel:[phone] [facility] No Information 200 9 Krishnasamy Kevin. [address] [place] [address], [facility], . tel:[phone] [facility], [address], [place], [place], [id number], tel:[phone] [facility] No Information 9 Krishnasamy Kevin. [address] [place] [address], [facility], [place]. tel:[phone] Referring Provider: Kevin gutiérrez, [address] [place], [place] [address]ate [address], [facility]. tel:[phone] Family History Family Member Type Diagnosis Age At Onset No Information Payers Payer name Insurance type Covered green party ID Authoriza tiremi(s) [place] [id number] AARP Medicare Supp CI [id number] Social History Type Description Quantity Date Captured [...]
--- OUTSIDE RECORDS SUMMARY | 2024-06-15 21:12 | XMS_ITS | Clinical Summary ---
Author Organization [facility] [address] Address [address] [place] [address] Care Team Providers Care Lube Technician Name Role Phone Ajay Gaytan MD Primary [...] extended release tabletIndication s:Coronary artery disease involving [place] coronary artery of [place] heart without angina pectoris Take 1 Tablet (25 mg) by mouth daily. 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 10/11/2021 Ventricular premature beats 08/06/2013 Overview (06/27/2016): PVCs Hypertension 08/06/2013 Overview (06/27/2016): HYPERTENSION NOS Tobacco dependence syndrome 08/06/2013 Overview (06/27/2016): TOBACCO USE DISORDER Palpitations 08/06/2013 Overview (06/27/2016): PALPITATIONS 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/27/2016): MIXED HYPERLIPIDEMIA Premature atrial contraction 08/06/2013 Overview (06/28/2016): ATRIAL PREMATURE BEATS Encounters Date Type Department Care Team Description 05/26/2024 Results Follow-Up [facility] Medical [facility] Cardiology [address] [place] [phone] Rebekah Jarrell NP 05/20/2024 1:30 PM DEICER REPAIRER PNEUMATIC Ancillary Procedure [facility] Cardiology [address] [place] [phone] Palpitations 05/20/2024 11:30 AM DEICER REPAIRER PNEUMATIC Office Visit [facility] Medical [facility] Cardiology [address] [place] [phone] Rebekah Jarrell NP Palpitations (Primary Dx) from [...] on file Legal Sex Female 1:43 AM DEICER REPAIRER PNEUMATIC Gender Identity Not on file Sexual Orientation Not on file Obstetrics History Last Filed Vital Signs Vital Sign Reading Time Taken Comments Blood Pressure 116/50 05/20/2024 11:22 AM DEICER REPAIRER PNEUMATIC Pulse 76 05/20/2024 11:22 AM DEICER REPAIRER PNEUMATIC Temperature - - Respiratory Rate - - Oxygen Saturation 98% 05/20/2024 11:22 AM DEICER REPAIRER PNEUMATIC Inhaled Oxygen Concentration - - Weight 53.1 kg (117 lb) 05/20/2024 11:22 AM DEICER REPAIRER PNEUMATIC Height 152.4 cm (5') 05/20/2024 11:22 AM DEICER REPAIRER PNEUMATIC Body Mass Index 22.85 05/20/2024 11:22 AM DEICER REPAIRER PNEUMATIC Plan of Treatment Upcoming Encounters Date Type Department Care Team (Late st Contact Info) Description 09/14/2024 9:30 AM CDT Hospital Encounter [address] [address] Adebayo Valderrama DO [address] [facility] [address] [place] [address] [place] [address] 09/14/2024 9:30 AM CDT - 09/14/2024 10:00 AM CDT Surgery [address] [address] Adebayo Valderrama DO [address] [facility] [address] [place] [address] [place] [address] COLONOSCOPY Scheduled Procedures Name Priority Associated Diagnoses [...] MONITOR 48 HR Routine 05/23/2024 10:24 AM DEICER REPAIRER PNEUMATIC Palpitations from Last 3 Months Results * 48 HR Holter Monitor (05/23/2024 10:24 AM DEICER REPAIRER PNEUMATIC) Anatomical Region Laterality Modality Electrocardiogra phy Narrative 05/25/2024 3:19 PM DEICER REPAIRER PNEUMATIC AMBULATORY DESIZING MACHINE BACK TENDER REPORT Patient Name: Luana Martinez Date of [...] was used to complete this document, therefore, packer operator automatic variances may occur. Sukumar Morrow MD, [facility] 05/25/24 Procedure Note Sukumar Morrow MD - 05/25/2024 AMBULATORY DESIZING MACHINE BACK TENDER REPORT Patient Name: Luana Martinez Date of [...] software was used to complete this document, therefore,packer operator automatic variances may occur. Sukumar Morrow MD, [facility] 05/25/24 Rebekah Jarrell NP [facility]E [facility]UR[facility] Final Result from Last 3 Months Insurance MEDICARE [facility] MEDICARE [facility] Care Teams Lube Technician Relationship Specialty Start Date End Date Ajay Gaytan MD [address] [place] [address] PCP - General Family Medicine 10/11/21
--- OUTSIDE RECORDS SUMMARY | 2024-06-15 21:12 | XMS_ITS | Referral Summary ---
Author Organization [facility] [address] [place] [address] [address] [facility] [address] [place] [address] Care Team Providers Care Global Ceo Name Role Phone Ajay Gaytan MD Primary Care Prov ider Encounters Date Type Department Care Team Description 05/26/2024 Results Follow-Up [facility] Cardiology [address] [place] [address] [address] [place] [address] Rebekah Jarrell NP 05/20/2024 1:30 PM DIRECTOR OF PROMOTIONS Ancillary Procedure [facility] Cardiology [address] [place] [address] [address] [place] [address] Palpitations 05/20/2024 11:30 AM DIRECTOR OF PROMOTIONS Office Visit [facility] Cardiology [address] [place] [address] [address] [place] [address] Rebekah Jarrell NP Palpitations (Primary [...] extended release tabletIndication s:Coronary artery disease involving [place] coronary artery of [place] heart without angina pectoris Take 1 Tablet (25 mg) by mouth daily. 90 tablet 3 09/01/2023 Active alpha lipoic acid 100 mg capsule Take by mouth Active Active Problems Problem Noted Date Diagnosed Date Encounter for screening colonoscopy 03/10/2024 History of colonic polyps 03/10/2024 Family history of colon cancer 03/10/2024 Statin intolerance 10/11/2021 Coronary artery disease invo lving [place] coronary artery of [place] heart without angina pectoris 10/11/2021 Ventricular premature [...] on file Legal Sex Female 1:43 AM DIRECTOR OF PROMOTIONS Gender Identity Not on file Sexual Orientation Not on file Last Filed Vital Signs Vital Sign Reading Time Taken Comments Blood Pressure 116/50 05/20/2024 11:22 AM DIRECTOR OF PROMOTIONS Pulse 76 05/20/2024 11:22 AM DIRECTOR OF PROMOTIONS Temperature - - Respiratory Rate - - Oxygen Saturation 98% 05/20/2024 11:22 AM DIRECTOR OF PROMOTIONS Inhaled Oxygen Concentration - - Weight 53.1 kg (117 lb) 05/20/2024 11:22 AM DIRECTOR OF PROMOTIONS Height 152.4 cm (5') 05/20/2024 11:22 AM DIRECTOR OF PROMOTIONS Body Mass Index 22.85 05/20/2024 11:22 AM DIRECTOR OF PROMOTIONS Plan of Treatment Upcoming Encounters Date Type Department Care Team (Late st Contact Info) Description 09/14/2024 9:30 AM CDT Hospital Encounter [address] [address] Adebayo Valderrama, [address] [facility] [address] [place] [address] [place] [place] [id number] 09/14/2024 9:30 AM CDT - 09/14/2024 10:00 AM CDT Surgery [address] [address] Adebayo Valderrama DO [address] [facility] [address] [place] [address] [place] [id number] COLONOSCOPY Scheduled Procedures Name Priority Associated Diagnoses Date/Ti me COLONOSCOPY Encounter for screening colonoscopy History of colonic polyps Family history of colon cancer 09/14/2024 9:30 AM CDT Procedures Procedure Name Priority Date/Time Associated Diagnosis Comments HOLTER MONITOR 48 HR Routine 05/23/2024 10:24 AM DIRECTOR OF PROMOTIONS Palpitations from Last 3 Months Results * 48 HR Holter Monitor (05/23/2024 10:24 AM DIRECTOR OF PROMOTIONS) Anatomical Region Laterality Modality Electrocardiogra phy Narrative 05/25/2024 3:19 PM DIRECTOR OF PROMOTIONS AMBULATORY BELT GLASS SANDER REPORT Patient Name: Luana Martinez Date of [...] was used to complete this document, therefore, technology instructor variances may occur. Sukumar Morrow MD, [facility] 05/25/24 Procedure Note Sukumar Morrow MD - 05/25/2024 AMBULATORY BELT GLASS SANDER REPORT Patient Name: Luana Martinez Date of [...] software was used to complete this document, therefore,technology instructor variances may occur. Sukumar Morrow MD, [facility] 05/25/24 Rebekah Jarrell NP CV CARDIAC SERVICES PROCE DURES Final Result from Last 3 Months Insurance MEDICARE [facility] MEDICARE [facility] Care Teams Global Ceo Relationship Specialty Start Date End Date Ajay Gaytan MD [address] [place] [address] PCP - General Family Medicine 10/11/21
--- OUTSIDE RECORDS SUMMARY | 2024-06-15 21:12 | XMS_ITS | Clinical Summary ---
[facility] Organization [facility] Address [address] [place]indo: Epic Prelude ADT [place] [address] Care Team Providers Care Steam Box Operator Name Role Phone Unavailable Primary Care Provider [...] DAILY 50 Each 4 04/29/2024 11:31 AM CO TEACHER 4 06/10/19 25 Discontinued Social History Tobacco [...]
--- NOTE | 2024-06-15 21:34 | PC.NURSE ---
called lab to add on Mg and TSH
== END 2024-06-15 23:34 | disposition home or self-care (01) ==
PROVIDERS: Emergency Provider Student in an Organized Health Care Education/Training Program; PCP Family Medicine Adolescent Medicine
DX: R00.2 Palpitations (principal); R42 Dizziness and giddiness; I25.2 Old myocardial infarction; F17.210 Nicotine dependence, cigarettes, uncomplicated; Z90.49 Acquired absence of other specified parts of digestive tract; Z79.82 Long term (current) use of aspirin; Z79.84 Long term (current) use of oral hypoglycemic drugs; Z79.899 Other long term (current) drug therapy; R00.0 Tachycardia, unspecified; I49.1 Atrial premature depolarization; R94.31 Abnormal electrocardiogram [ECG] [EKG]
CPT/HCPCS: 36415; 71045; 80053; 83690; 83735; 84443; 84484; 85025; 85610; 85730; 93005; 99284

== ENCOUNTER 2024-11-01 07:11 | Outpatient (CLI) | payer MEDICARE, SELFPAY ==
[2024-11-01 08:22] LABS: Cholesterol 216 mg/dL (0-200); HDL Direct 71 mg/dL; Triglycerides 140 mg/dL (<150)
[2024-11-01 08:32] LABS: Hemoglobin A1C 5.8 % (<5.7)
== END 2024-11-01 07:12 | disposition home or self-care (01) ==
PROVIDERS: PCP Family Medicine Adolescent Medicine; Visit Provider Family Medicine Adolescent Medicine
DX: E11.42 Type 2 diabetes mellitus with diabetic polyneuropathy (principal); E78.00 Pure hypercholesterolemia, unspecified
CPT/HCPCS: 36415; 80061; 83036